=== PATIENT | female | born 1975 | race Two or more races ===

== ENCOUNTER 2024-05-28 08:05 | Outpatient (AMB) | payer OTHER, SELFPAY ==
[2024-05-28 08:15] VITALS: BP 120/62; PULSE 88; O2SAT 99; BMI 23.2
--- NOTE | 2024-05-28 08:15 | MHC.OFFVIS ---
Vital Signs 05/28/24 08:15 Height 5 ft 3 in Weight 130 lb 15.273 oz BMI 23.2 BP 120/62 Blood Pressure Location Lt brachial Position Sitting Pulse 88 Pulse Source Pulse Oximeter Pulse Oximetry (%) 99 Oxygen Delivery Method Room Air Intake Visit Reasons: Arthritis Intake Note: Patient present for follow up arthritis, she states shoulders and hands are hurting her today. Allergies lisinopril Adverse Reaction (Mild, Verified 05/28/24 08:18) Cough HPI HPI Arthritis: Details: She is having sharp shooting pain at the wrist with numbness in her hands. History of bilateral carpal tunnel release. Left shoulder pain has gotten worse. She is having difficulty when she brings her arms down. She also has pain at night when sleeping and has to sleep on her right side which is causing pain in her right shoulder. Intermittent knee pain relief with Tylenol Arthritis as needed. She is having pain in her right 2nd PIP causing difficulty in functioning such as when she was using knife. [facility] Medical History (Updated 05/28/24 @ 08:51 by Sammy De La Rosa MD) Carpal tunnel syndrome Arthritis Hypertension Surgical History (Updated 05/28/24 @ 08:[address] [facility]) History of carpal tunnel surgery Review of Systems Const All systems reviewed & are unremarkable except as noted in HPI and below Physical Exam Vital Signs: Last Vital Signs Pulse 88 05/28/24 08:15 BP 120/62 05/28/24 08:15 Pulse Ox 99 05/28/24 08:15 Oxygen Delivery Method Room Air 05/28/24 08:15 BMI result Body Mass Index 23.2 Const Other: General: Comfortable Skin: No lesions seen MSK: Tender to palpate right 2nd PIP. No synovitis noted. Tenderness subacromial region left side with positive painful arc and Mayfield Neal test. Office Procedures AMB Joint Injection/Aspiration Joint Injection/Aspiration Details: Left subacromial region Prep: site was prepped using aseptic technique Injected: 40 mg of, Kenalog, with 1 mL of and 1% plain lidocaine Procedure: The patient tolerated the procedure well Coding 68307 - Large joint Procedure code (CPT) selection complete Office Meds Kenalog 40 mg/mL suspension for injection Performing Provider: Sammy De La Rosa MD Performing Location: [facility] Rheumatology-[facility] Administered by: Sammy De La Rosa MD on 05/28/24 08:46 Dose Route Admin Location Dispensed Lot Number Expiration Date [facility] Welding Engineer 40 mg intrabursal 1 mL AP 2 [id number] [employer] lidocaine (PF) 10 mg/mL (1 %) injection solution Performing Provider: Sammy De La Rosa MD Performing Location: [facility] Administered by: Sammy De La Rosa MD on 05/28/24 08:46 Dose Route Admin Location Dispensed Lot Number Expiration Date [facility] Welding Engineer 10 mg Infiltration 2 mL [id number] [facility] Assessment & Plan Assessment & Plan (1) Subacromial impingement of left shoulder: Comment: We discussed treatment. She agreed to cortisone injection as she has had benefit with it in the past. Code(s): M75.42 - Impingement syndrome of left shoulder Category: Medical Plan: She received left subacromial cortisone injection this visit [facility]ing [facility] Return to clinic in 3 months (2) Knee pain: Comment: Intermittent. Unremarkable exam. Pain is controlled with Tylenol Arthritis 650 mg when needed. Code(s): M25.569 - Pain in unspecified knee Category: Medical Qualifiers: Chronicity: chronic Laterality: bilateral Qualified Code(s): M25.561 - Pain in right knee; M25.562 - Pain in left knee; G89.29 - Other chronic pain Plan: Continue to use Tylenol 650 mg are p.r.n. Requesting [facility] including x-rays If pain worsens, she will call office for PT order Return to clinic in 3 months (3) Hand pain: Comment: Right 2nd PIP tender on exam. She has recurrence of numbness in her left hand with sharp shooting wrist pain likely attributed to fill carpal tunnel release Code(s): M79.643 - Pain in unspecified hand Category: Medical Qualifiers: Laterality: right Qualified Code(s): M79.641 - Pain in right hand Plan: Requesting [facility] including x-rays Continue to use Tylenol as needed for pain control I recommend that she use diclofenac gel 1% applied to affected area every 4-6 hours as needed I am asking her to call her hand surgeon to address recurrence of hand numbness and sharp pain in wrists Return to clinic in 3 months Orders: Orders AMB Joint Injection/Aspiration Today M25.872 - Other specified joint disorders, left ankle and foot Medications: New diclofenac sodium 1% apply to finger or knee ever 4-6 hours as needed for joint pain 2 grams topical QID 100 grams 5RF Coding Level of Care Code Est Pt Level 4 (08607) Complex EM visit Add On G2211 Diagnoses Subacromial impingement of left shoulder M75.42 Chronic pain of both knees M25.561; M25.562; G89.29 Chronicity: chronic Laterality: bilateral Pain of right hand M79.641 Laterality: right CPT Codes Coding - 45307 Large joint: 42080 - Large joint ([id number])
== END 2024-05-28 08:45 | disposition home or self-care (01) ==
PROVIDERS: Visit Provider Internal Medicine Rheumatology
DX: M75.42 Impingement syndrome of left shoulder (principal); M25.561 Pain in right knee; M25.562 Pain in left knee; G89.29 Other chronic pain; M79.641 Pain in right hand; M25.872 Other specified joint disorders, left ankle and foot
CPT/HCPCS: 20610; 99213; G2211

== ENCOUNTER → 2024-05-28 08:05 | Outpatient (BNVA) | payer OTHER, SELFPAY | PROVIDERS: Visit Provider Internal Medicine Rheumatology | DX: M75.42 Impingement syndrome of left shoulder (principal); M25.561 Pain in right knee; M25.562 Pain in left knee; G89.29 Other chronic pain; M79.641 Pain in right hand | CPT/HCPCS: 20610; 99212; J2003; J3300 ==

== ENCOUNTER 2024-08-26 08:33 | Outpatient (REF) | payer OTHER, SELFPAY ==
--- NOTE | ~2024-08-26 | XR_ITS ---
EXAMINATION: XR WRIST 3 OR MORE VIEWS LEFT HISTORY: M25.539 - Pain in unspecified wrist COMPARISON: There are no prior studies available for comparison. FINDINGS: Four views of the left wrist are submitted. Osseous mineralization is normal. There is no fracture or dislocation. The joint spaces are preserved. There is chondrocalcinosis. XR/XR wrist LT min 3V IMPRESSION: Chondrocalcinosis. Otherwise unremarkable examination of the left wrist. Electronically signed by: Vern Mae MD 08/26/2024 11:41 AM EDT
--- OUTSIDE RECORDS SUMMARY | 2024-08-26 10:38 | XMS_ITS | Clinical Summary ---
Author Organization [facility] Address [address] [place] [address] Phone Care Team Providers Care Gastroenterology Technician Name Role Phone Hector Otto MD Primary Care Provider [phone] Allergies Active Allergy Reactions Criticality Noted Date [...] Office Visit [facility] [address] [place] [phone] Kulwinder Avila MD [address] [phone] Health Maintenance Due Date Last Done Comments Pneumococcal Vaccine: Pediat rics (0 to 5 Years) and At-Risk Patients (6 to 64 Years) (1 of 2 - PCV) 1982 Hepatitis B Vaccine (1 of 3 - 19+ 3-dose series) 1995 09/08/2007, 04/07/2007, 03/07/2007 Influenza Vaccine Completed 04/01/2024, , 03/23/2022, Additional history exists Insurance [employer] Care Teams Gastroenterology Technician Relationship Specialty Start Date End Date Hector Otto MD [address] [place] [id number] PCP - General Internal Medicine 02/02/21
--- OUTSIDE RECORDS SUMMARY | 2024-08-26 10:38 | XMS_ITS | Clinical Summary ---
Author Organization [facility] Address [address] [place] [address] Care Team Providers Care Seater Assembler Name Role Phone Unavailable Primary Care Provider [...]
[2024-08-26 13:50] LABS: MANUAL DIFF FLAG NO
[2024-08-26 13:57] LABS: Basophils Percent Auto 0.9 % (0-2); Eosinophils Absolute Auto 0.1 X10*3/uL (0.0-0.4); Eosinophils Percent Auto 2.3 % (0-4); Hematocrit 41.1 % (37.0-47.0); Hemoglobin 13.5 g/dl (12.0-16.0); Lymphocytes Absolute Auto 1.9 X10*3/uL (1.2-4.9); Lymphocytes Percent Auto 42.8 % (20-40); Mean Corpuscular HGB Conc 32.8 g/dl (31.0-35.0); Mean Corpuscular Hemoglobin 29.4 pg (27.0-33.0); Mean Corpuscular Volume 89.5 fL (80.0-98.0); Mean Platelet Volume 12.1 fL (9.4-12.3); Monocytes Absolute Auto 0.3 X10*3/uL (0.1-1.2); Monocytes Percent Auto 6.9 % (2-11); Neutrophils Percent Auto 47.1 % (45-73); Platelet Count 194 X10*3/uL (160-400); Red Blood Count 4.59 X10*6/uL (4.20-5.50); Red Cell Distribution Width 12.3 % (11.0-16.0); White Blood Count 4.3 X10*3/uL (4.8-10.8)
[2024-08-26 14:05] LABS: Alanine Aminotransferase 73 U/L (0-31); Aspartate Amino Transferase 59 U/L (5-31); Estimated Glomerular Filt Rate > 60
== END 2024-08-26 08:34 | disposition home or self-care (01) ==
LOC: HO.HMGCX 08:33
PROVIDERS: Visit Provider Internal Medicine Rheumatology
DX: M25.232 Flail joint, left wrist (principal); R53.1 Weakness; R29.898 Other symptoms and signs involving the musculoskeletal system; G56.03 Carpal tunnel syndrome, bilateral upper limbs; M75.42 Impingement syndrome of left shoulder; M25.562 Pain in left knee; G89.29 Other chronic pain; Z79.60 Long term (current) use of unspecified immunomodulators and immunosuppressants
CPT/HCPCS: 36415; 73110; 82565; 84450; 84460; 85025; 99212

== ENCOUNTER 2024-08-26 08:33 | Outpatient (AMB) | payer OTHER, SELFPAY ==
--- NOTE | 2024-08-26 08:35 | MHC.OFFVIS ---
Vital Signs 08/26/24 08:37 Weight 129 lb 3.054 oz BP 120/72 Blood Pressure Location Lt brachial Position Sitting Pulse 78 Pulse Source Pulse Oximeter Pulse Oximetry (%) 98 Oxygen Delivery Method Room Air Intake Visit Reasons: 3 mo follow up Intake Note: Patient present for follow up arthritis Accompanied by: Self / Same As Patient Allergies lisinopril Adverse Reaction (Mild, Verified 08/26/24 08:38) Cough HPI HPI 3 mo follow up: Details: She has been having consistent left wrist pain. Hands are weak. Things are more difficult to hold. She is not lifting at work anymore. Right 2nd and 3rd fingertip is numb. Symptoms are worse during the day. She feels fine in the morning when she wakes up. 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 She has been taking Tylenol Arthritis 2 tablets in the evening PRN pain. In the last 2 weeks she has been having left foot pain. No joint swelling. Cortisone to left shoulder resolved pain. She also used diclofenac gel on her shoulder and knee PRN pain. [facility] Medical History Carpal tunnel syndrome Arthritis Hypertension Surgical History History of carpal tunnel surgery Review of Systems Const All systems reviewed & are unremarkable except as noted in HPI and below Physical Exam Vital Signs: Last Vital Signs Pulse 78 08/26/24 08:37 BP 120/72 08/26/24 08:37 Pulse Ox 98 08/26/24 08:37 Oxygen Delivery Method Room Air 08/26/24 08:37 Const Other: General: Comfortable Skin: No lesions seen MSK: Tender to palpate right left wrists with warm. No swelling of joints. Tender left MTPs. Normal range of motion of upper extremity and lower extremity. Assessment & Plan Assessment & Plan (1) Generalized weakness: Code(s): R53.1 - Weakness Category: Medical Plan: She agreed to physical therapy to improve upper extremity and lower extremity strength. PT ordered (2) Hand weakness: Code(s): R29.898 - Other symptoms and signs involving the musculoskeletal system Category: Medical Plan: OT ordered to improve hand strength (3) Bilateral carpal tunnel syndrome: Comment: Status post carpal tunnel release. She is having symptoms related to carpal tunnel syndrome from failed surgery. Code(s): G56.03 - Carpal tunnel syndrome, bilateral upper limbs Category: Medical Plan: Wear wrist brace at night Contact hand surgeon to discuss recurrence of symptoms (4) Subacromial impingement of left shoulder: Comment: Resolved with cortisone injection from last visit Code(s): M75.42 - Impingement syndrome of left shoulder Category: Medical Plan: Monitor clinic (5) Knee pain: Comment: Intermittent. Unremarkable exam. Pain is controlled with Tylenol Arthritis 650 mg 1-2 tablets q.h.s. when needed. Code(s): M25.569 - Pain in unspecified knee Category: Medical Qualifiers: Chronicity: chronic Laterality: bilateral Qualified Code(s): M25.561 - Pain in right knee; M25.562 - Pain in left knee; G89.29 - Other chronic pain Plan: Continue to use Tylenol 650 mg 1-2 tablets q.h.s./p.r.n. I have ordered labs for drug monitoring PT ordered to improve lower extremity strength Return to clinic in 3 months (6) Chronic wrist pain: Comment: X-ray from 2021 reviewed. She has chondrocalcinosis noted. At this time she does not have synovitis to suggest CPPD flare. We discussed conservative management. Code(s): M25.539 - Pain in unspecified wrist; G89.29 - Other chronic pain Category: Medical Plan: OT ordered to improve hand strength X-ray left wrists ordered Baseline labs ordered Return to clinic in 3 months Orders: Orders OT Evaluation and Treatment Today G56.03 - Carpal tunnel syndrome, bilateral upper limbs, R29.898 - Other symptoms and signs involving the musculoskeletal system PT Evaluation and Treatment Today R53.1 - Weakness Aspartate Amino Transferase Today Z79.60 - terminal make up operator (current) use of unspecified immunomodulators and immunosuppressants Alanine Aminotransferase Today Z79.60 - FDC (current) use of unspecified immunomodulators and immunosuppressants Creatinine Today Z79.60 - terminal make up operator (current) use of unspecified immunomodulators and immunosuppressants Complete Blood Count Auto Diff Today Z79.60 - terminal make up operator (current) use of unspecified immunomodulators and immunosuppressants XR wrist LT min 3V Today G89.29 - Other chronic pain, M25.539 - Pain in unspecified wrist Coding Level of Care Code Est Pt Level 4 (20458) Complex EM visit Add On G2211 Diagnoses Generalized weakness R53.1 Hand weakness R29.898 Bilateral carpal tunnel syndrome G56.03 Subacromial impingement of left shoulder M75.42 Chronic pain of both knees M25.561; M25.562; G89.29 Chronicity: chronic Laterality: bilateral Chronic wrist pain M25.539; G89.29
[2024-08-26 08:37] VITALS: BP 120/72; PULSE 78; O2SAT 98
--- OUTSIDE RECORDS SUMMARY | 2024-08-26 09:21 | XMS_ITS | Clinical Summary ---
Author Organization [facility] ity Address [address] [place] [address] Care Team Providers Care Rehabilitation Counselor Name Role Phone Unavailable Primary Care Provider Unavailabl e Social History Tobacco Use Types Packs/Day Years Used Date Smoking Tobacco: Never Assessed Comments Unknown Sex and Gender Information Value Date Recorded Sex Assigned at Not on file Legal Sex Female 8:29 AM EST Gender Identity Not on file Sexual Orientation Not on file Plan of Treatment Health Maintenance Due Date Last Done Comments Breast Cancer Screening 1976 DTaP,Tdap,and Td Vaccines (1 - Tdap) 1995 Hepatitis B Vaccines (1 of 3 - 19+ 3-dose series) 1995 Cervical Cancer Screening: P ap Smear 1997 Colorectal Cancer Screening: Colonoscopy 05/13/2022 Depression Screening 05/13/2022 HIV Screening 05/13/2022 Hepatitis C Screening 05/13/2022 Social Influencers of Health Screening 05/13/2022 COVID-19 Vaccine (2023-2 5 season) 2024 Influenza Vaccine (#1) 2024 HIB Vaccines Aged Out No longer eligi ble based on patient's age to complete this topic HPV Vaccines Aged Out No longer eligi ble based on patient's age to complete this topic Hepatitis A Vaccines Aged Out No long er eligible based on patient's age to complete this topic IPV Vaccines Aged Out No longer eligi ble based on patient's age to complete this topic MMR Vaccines Aged Out No longer eligi ble based on patient's age to complete this topic Meningococcal ACWY Vaccine Aged Out N o longer eligible based on patient's age to complete this topic Meningococcal B Vacine Aged Out No lo nger eligible based on patient's age to complete this topic Pneumococcal Vaccine: Pediat rics (0 to 5 Years) and At-Risk Patients (6 to 64 Years) Aged Out No longer eligible b ased on patient's age to complete this topic RSV Immunization Patients Un mani 20 months Aged Out No longer eligible b ased on patient's age to complete this topic Varicella Vaccines Aged Out No longer eligible based on patient's age to complete this topic
--- OUTSIDE RECORDS SUMMARY | 2024-08-26 09:21 | XMS_ITS | Continuity of Care Document ---
Author Organization [facility] Address [address] [place] [address]- Care Team Providers Care Elastic Cutter Name Role Phone Fam MATIAS, Hector Sauer Primary Care Physician Encounter [facility] Date(s): 07/02/24 - 08/01/24 [facility] [address] [place], [place] [phone] Attending Physician: Shea Schwab Encounter Type: Triage Allergies, Adverse Reactions, Alerts Substance Criticality Severity Reaction Reaction Severity Status lisinopril cough Active Immunizations Given and Recorded Vaccine Date Status Refusal Reason influenza virus vaccine, inactivated 04/01/24 Give n influenza virus vaccine, inactivated 03/21/23 Give n influenza virus vaccine, inactivated 03/23/22 Give n influenza virus vaccine, inactivated 03/10/22 Johnie rded influenza virus vaccine, inactivated 04/12/21 Give n influenza virus vaccine, inactivated 03/08/20 Give n influenza virus vaccine, inactivated 02/24/19 Give n influenza virus vaccine, inactivated 04/10/18 Give n influenza virus vaccine, inactivated 03/29/15 Give n influenza virus vaccine, inactivated 04/09/14 Give n influenza virus vaccine, inactivated 03/03/13 Give n influenza virus vaccine, inactivated 1 02/19/12 Gi puneet influenza virus vaccine, inactivated 2 07/12/11 Gi puneet influenza virus vaccine, inactivated 3 07/26/10 Gi puneet influenza virus vaccine, inactivated 4 03/28/07 Gi puneet [id number] 12y+ bivalent booster vax 05/23/22 Given SARS-CoV-2 mRNA ([id number]) vax 07/28/21 Given SARS-CoV-2 (COVID-19) mRNA BNT-162b2 vac 5 12/23/20 Given SARS-CoV-2 (COVID-19) mRNA BNT-162b2 vac 12/02/20 Given tetanus-diphtheria toxoids (Td) 06/27/18 Given influ virus vac, H1N1, inactive(oldterm) 6 08/19/09 Given Influenza Inactive (IM) (oldterm) 7 02/28/09 Given Tet/Diphth/Acel, Pertussis (oldterm) 8 07/12/08 Gi puneet Hepatitis B Vaccine (old term) 9 09/08/07 Given Hepatitis B Vaccine (old term) 10 04/07/07 Given Hepatitis B Vaccine (old term) 11 03/07/07 Given 1Admin Note: VIS GIVEN VIS DATE 12/10/2011 2Admin Note: flulaval vis given vis date 01/02/2011 3Admin Note: vis given 01/17/10 4Admin Note: VIS GIVEN 5? Unknown: Resend to [facility]. 6Admin Note: vis given 03/11/09 7Admin Note: VIS GIVEN 01/18/09 8Admin Note: VIS GIVEN 9Admin Note: 3RD VACCINE 10Admin Note: 11Admin Note: 1st Medications aMILoride 5 mg oral tablet 1 tablet = 5 mg, By Mouth, Daily, # 90 tablet, 3 Refills, Maintenance, 07/02/24 9:53:00 AM EST, Tablet, [facility], Dose increased 04/01/23, 160, cm, 07/02/24 9:48:00 EST, Height, 59, kg, 09/11/23 13:30:00 EDT, Dry Weight Start Date: 07/02/24 Status: Ordered Quantity: 90.0 Unit: tablet Repeat number: 4 cetirizine 10 mg oral tablet 1 tablet = 10 mg, By Mouth, Daily, # 30 tablet, 5 Refills, Maintenance, 01/24/24 9:11:00 AM EDT, Tablet, [facility], Partial fill upon patient request if the prescription is for a schedule II opioid drug., 160, cm, 10/29/23 9:15:00 EDT, Height, 59, kg, 09/11/23 13:30:00 EDT, Dry Weight Start Date: 01/24/24 Status: Ordered Quantity: 30.0 Unit: tablet Repeat number: 6 cholecalciferol 1000 intl units oral capsule 1 capsule = 25 mcg, By Mouth, Daily, # 100 capsule, 0 Refills, Maintenance, 11/26/22 1:56:00 PM EDT,Capsule, Partial fill upon patient request if the prescription is for a schedule II opioid drug. Start Date: 11/26/22 Status: Ordered Quantity: 100.0 Unit: capsule Repeat number: 1 docusate sodium 100 mg oral capsule 1 capsule = 100 mg, By Mouth, 2 times a day, PRN as needed for constipation, # 60 capsule, 1 Refills, Maintenance, 04/01/24 9:14:00 AM EDT, Capsule, [facility], Partial fill upon patient request if the prescription is for a schedule II opioid drug., 160, cm, 04/01/24 8:23:00 EDT, Height, 59, kg, 09/11/23 13:30:00 EDT, Dry Weight Start Date: 04/01/24 Status: Ordered Quantity: 60.0 Unit: capsule Repeat number: 2 fluticasone 50 mcg/inh nasal spray See Instructions, INHALE 1 SPRAYS INTO THE NOSTRILS TWO TIMES A DAY FOR 21 DAYS, # 16 Gm, 5 Refills, 04/01/24 8:31:00 AM EDT, [facility], 21, INHALE 1 SPRAYS INTO THE NOSTRILS TWO TIMES A DAYFOR 21 DAYS, 160, cm, 04/01/24 8:23:00 EDT, Height, 59, kg, 09/11/23 13:30:00 EDT, Dry Weight Start Date: 04/01/24 Status: Ordered Quantity: 16.0 Unit: g Repeat number: 6 Home Blood Pressure Monitor See Instructions, # 1 each, Maintenance, Use to check BP daily for Hypertension, I10., 07/30/23 10:15:00 AM EST, Supply, 160.02, cm, 07/30/23 9:50:00 EST, Height, 55.8, kg, 10/15/22 13:28:00 EDT, Dry Weight Start Date: 07/30/23 Status: Ordered Quantity: 1.0 Unit: each Repeat number: 1 loperamide 2 mg oral tablet 1 tablet = 2 mg, By Mouth, Every 4 hours, PRN for loose stool, # 60 tablet, 0 Refills, Maintenance,07/02/24 10:13:00 AM EST, Tablet, [facility], Partial fill upon patient request if the prescription is for a schedule II opioid drug., 160, cm, 07/02/24 9:48:00 EST, Height, 59, kg, 09/11/23 13:30:00 EDT, Dry Weight Start Date: 07/02/24 Status: Ordered Quantity: 60.0 Unit: tablet Repeat number: 1 Magnesium Chloride = 64 mg, 2 times a day, 0 Refills, Maintenance, 11/26/22 1:54:00 PM EDT, Partial fill upon patient request if the prescription is for a schedule II opioid drug. Start Date: 11/26/22 Status: Ordered Repeat number: 1 MiraLax oral powder for reconstitution = 17 Gm, By Mouth, Daily, dissolve in 4 to 8 oz of beverage, # 510 Gm, 1 Refills, Acute 04/01/25 9:14:00 AM EDT, 04/01/24 9:14:00 AM EDT, REC Powder, [facility], Partial fill upon patient request if the prescription is for a schedule II opioid drug., 17 Gm By Mouth Daily,Instr:dissolve in 4to 8 oz of beverage, 160, cm, 04/01/24 8:23:00 EDT, Height, 59, kg, 09/11/23 13:30:00 EDT, Dry Weight Start Date: 04/01/24 Stop Date: 04/01/25 Status: Ordered Quantity: 510.0 Unit: g Repeat number: 2 naproxen 500 mg oral tablet 1 tablet = 500 mg, By Mouth, 2 times a day, # 60 tablet, 0 Refills, Acute 04/01/25 9:13:00 AM EDT, 04/01/24 9:12:00 AM EDT, Tablet, [facility], Partial fill upon patient request if the prescription is for a schedule II opioid drug., 160, cm, 04/01/24 8:23:00 EDT, Height, 59, kg, 09/11/23 13:30:00 EDT, Dry Weight Start Date: 04/01/24 Stop Date: 04/01/25 Status: Ordered Quantity: 60.0 Unit: tablet Repeat number: 1 Indication: Unspecified osteoarthritis, unspecified site omeprazole 20 mg oral enteric coated capsule 1 capsule = 20 mg, By Mouth, Daily, # 30 capsule, 3 Refills, Maintenance, 02/18/24 8:30:00 AM EDT, EC Capsule, [facility], Partial fill upon patient request if the prescription is for a schedule II opioid drug., 160, cm, 02/18/24 8:03:00 EDT, Height, 59, kg, 09/11/23 13:30:00 EDT, Dry Weight Start Date: 02/18/24 Stop Date: 06/17/24 Status: Ordered Quantity: 30.0 Unit: capsule Repeat number: 4 simethicone 80 mg oral tablet, chewable 80 mg, 1, tablet, Chew, 4 times a day, PRN, # 150 tablet, Refills 0, Tot. Refills 0, Maintenance, as needed for gas, 07/02/24 10:13:00 AM EST, Route to Pharmacy Electronically, [facility], Partial fill upon patient request if the prescription is for a schedule II opioid drug., 160, cm, 07/02/24 9:48:00 EST, Height, 59, kg, 09/11/23 13:30:00 EDT, Dry Weight Start Date: 07/02/24 Status: Ordered Quantity: 150.0 Unit: tablet Repeat number: 1 SUMAtriptan 25 mg oral tablet 1 tablet = 25 mg, By Mouth, Daily, PRN for migraine headache, may repeat dose after 2 hours up to amaximum of 2, # 9 tablet, 3 Refills, Maintenance, 04/01/23 10:02:00 AM EDT, Tablet, [facility], 160.02, cm, 04/01/23 9:44:00 EDT, Height, 55.8, kg, 10/15/22 13:28:00 EDT, Dry Weight Start Date: 04/01/23 Status: Ordered Quantity: 9.0 Unit: tablet Repeat number: 4 tiZANidine 4 mg oral tablet 4 mg, 1, tablet, By Mouth, Every 8 hours, prn muscle tightenss, spasm, may cause drowsiness, # 21 tablet, Refills 0, Tot. Refills 0, Maintenance, 09/12/23 3:28:00 PM EDT, [facility] Partial fill upon patient request if the prescription is for a schedule II opioid drug., 160, cm, 09/12/23 15:13:00 EDT, Height, 59, kg, 09/11/23 13:30:00 EDT, Dry Weigh t Start Date: 09/12/23 Stop Date: 09/19/23 Status: Ordered Quantity: 21.0 Unit: tablet Repeat number: 1 Problem List Condition Confirmation Course Effective Dates Status Health Status Informant Tendonitis, Achilles, right Confirmed Active Acquired renal cystic disease Confirmed 08/30/20 Active Anxiety Confirmed Active 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 07/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 Confirmed Active Carpal tunnel syndrome Confirmed Active Chalazion of lower eyelid of right eye Confirmed 03/02/19 Active Chronic kidney disease stage 2 Confirmed 08/30/20 Active Kidney cysts, bilateral 1 Confirmed Active Essential hypertension Confirmed 08/30/20 Active Family history of fatty liver - son, by biopsy Confirmed Active Gitelman syndrome Confirmed 08/30/20 Active Glaucoma 2 Confirmed Active Hyperparathyroidism due to renal insufficiency Confirmed 08/30/20 Active Hypokalemia Confirmed 08/31/20 Active 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 Avila 5S/p injection by Rheum with improvement Social History Social History Type Response Smoking Status Never smoker entered on: 09/01/13 Sex Female Sex Representation Female (finding) Patient Care team information Care Team Personnel Name: Lorena Degroot NP Position: S Outreach Member Role: Lifetime Consulting Physician Address: [address] [place] [address] Telecom: Name: Kulwinder Avila MD Position: [facility] Renal MD Member Role: Lifetime Consulting Physician Address: [address] [facility] [address] [facility] [place] [address]- Telecom: Name: Hector Otto MD Position: [facility] Physician - Primary Care Member Role: PCP Address: [address] [place] [address]- Telecom: Care Team Related Persons Name: SHANNA LOVE Name: PAL HERNÁNDEZ Insurance Providers Guarantor name: MEHULArash LOVE [facility] Plan Information #: 1 Payer: [facility] Member Number: NA Policy Number: NA Group Number: NA
--- OUTSIDE RECORDS SUMMARY | 2024-08-26 09:21 | XMS_ITS | Clinical Summary ---
Author Organization [facility] Address [address] [place] [address] Phone Care Team Providers Care Medical Lab Assistant Name Role Phone Hector Otto MD Primary Care Provider [phone] Allergies Active Allergy Reactions Criticality Noted Date Comments Lisinopril 09/20/2021 Other reaction(s): cough Medications SUMAtriptan (IMITREX) 25 MG tablet Take 25 mg by mouth 1 (one) time if needed Active fluticasone (FLONASE) 50 MCG/ACT nasal spray Administer 1 spray into each nostril 1 (one) time each day Active cetirizine (ZyrTEC) 10 MG tablet Take 10 mg by mouth 1 (one) time each day Active aMILoride (MIDAMOR) 5 MG tablet Take 1 tablet (5 mg total) by mouth every other day 45 tablet 3 3 Active Magnesium Chloride (MagDelay) 64 MG tablet delayed-release TAKE ONE TABLET BY MOUTH TWICE A DAY 180 tablet 3 4 Active D3 High Potency 25 MCG (1000 UT) capsule TAKE ONE CAPSULE BY MOUTH EVERY DAY 90 capsule 3 4 Active Active Problems Problem Noted Date Diagnosed Date Multiple renal cysts 09/20/2021 Autosomal dominant tubulointerstitial kidney dis ease 07/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 Hypokalemia 08/31/2020 Acquired renal cystic disease 08/30/2020 Chronic kidney disease stage 2 08/30/2020 Essential hypertension 08/30/2020 Gitelman syndrome 08/30/2020 Hyperparathyroidism due to renal insufficiency 0 08/30/2020 Hypomagnesemia 08/30/2020 Renal stone 08/30/2020 Resolved Problems Problem Noted Date Diagnosed Date Resolved Date Achilles tendinitis 09/20/2021 02/21/20 22 Anxiety 09/20/2021 02/20/2022 Carpal tunnel syndrome 09/20/202102/20 FH: Liver disease 09/20/2021 02/20/2022 Glaucoma 09/20/2021 02/20/2022 Overview (09/20/2021): Recently diagnosed, per report Ligation of fallopian tube 09/20/2021 0 02/20/2022 Migraine 09/20/2021 02/20/2022 Greater trochanteric pain syndrome 09/20/2021 02/20/2022 Overview (09/20/2021): S/p injection by Rheum with improvement Varicose veins of lower extremity 09/20/2021 02/20/2022 Cyst of kidney 09/20/2021 02/20/2022 Overview (09/20/2021): Followed by Dr. Kulwinder Avila Renal stone 09/20/2021 02/20/2022 Overview (09/20/2021): followed by Dr. 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 Immunizations Name Administration Dates Next Due Hep B, Unspecified 09/08/2007,04/07/2007, 007 Influenza TIV (IM) 03/17/2018,03/29/2015 Influenza Whole 02/28/2009 Influenza, Quadrivalent, With Preservative 04/10 Pfizer SARS-COV-2 12/23/2020,12/02/2020 Td, Unspecified 06/27/2018 Family History Medical History Relation Comments Diabetes Brother Cancer Father bone cancer 76 Diabetes Mother Hypertension Mother Diabetes Son Relation Status Comments Brother Father Mother Alive Son Social History Tobacco Use Types Packs/Day Years Used Date Smoking Tobacco: Never Smokeless Tobacco: Never Tobacco Cessation:Counseling Given: Not Answered Alcohol Use Standard Drinks/Week Comments No 0 (1 standard drink = 0.6 oz pur e alcohol) Comments Unknown Sex and Gender Information Value Date Recorded Sex Assigned at Not on file Legal Sex Female 5:06 PM EST Gender Identity Not on file Sexual Orientation Not on file Last Filed Vital Signs Vital Sign Reading Time Taken Comments Blood Pressure 147/82 11/20/2023 7:58 AM EDT Pulse 88 11/20/2023 7:58 AM EDT Temperature - - Respiratory Rate - - Oxygen Saturation 99% 11/26/2022 7:34 AM EDT Inhaled Oxygen Concentration - - Weight 60.8 kg (134 lb) 11/20/2023 7:49 AM EDT Height 160 cm (5' 3 ) 02/21/2022 9:28 AM EDT Body Mass Index 23.74 02/21/2022 9:28 AM EDT Plan of Treatment Upcoming Encounters Date Type Department Care Team (Late st Contact Info) Description 11/23/2024 8:00 AM EDT [facility] [address] [place] [phone] Kulwinder Avila MD [address] [phone] Health Maintenance Due Date Last Done Comments Pneumococcal Vaccine: Pediat rics (0 to 5 Years) and At-Risk Patients (6 to 64 Years) (1 of 2 - PCV) 1982 Hepatitis B Vaccine (1 of 3 - 19+ 3-dose series) 1995 09/08/2007, 04/07/2007, 03/07/2007 Influenza Vaccine Completed 04/01/2024, , 03/23/2022, Additional history exists Insurance [employer] Care Teams Medical Lab Assistant Relationship Specialty Start Date End Date Hector Otto MD [address] [place] [id number] PCP - General Internal Medicine 02/02/21
== END 2024-08-26 09:09 | disposition home or self-care (01) ==
LOC: HO.RHES 08:34
PROVIDERS: Visit Provider Internal Medicine Rheumatology
DX: R53.1 Weakness (principal); R29.898 Other symptoms and signs involving the musculoskeletal system; G56.03 Carpal tunnel syndrome, bilateral upper limbs; M75.42 Impingement syndrome of left shoulder; M25.561 Pain in right knee; M25.562 Pain in left knee; G89.29 Other chronic pain; M25.539 Pain in unspecified wrist
CPT/HCPCS: 99214; G2211

== ENCOUNTER → 2024-08-26 09:43 | Outpatient (BNV) | payer OTHER, SELFPAY | PROVIDERS: Visit Provider Radiology Diagnostic Radiology | DX: M25.532 Pain in left wrist (principal) | CPT/HCPCS: 73110 ==

== ENCOUNTER 2024-09-10 08:05 | Outpatient (AMB) | payer OTHER, SELFPAY ==
--- NOTE | 2024-09-10 08:06 | A.OFFVIS_ITS ---
Vital Signs 09/10/24 08:14 Height 5 ft 3 in Weight 129 lb 3.054 oz BMI 22.9 BP 122/80 Blood Pressure Location Lt brachial Position Sitting Pulse 95 Pulse Source Pulse Oximeter Pulse Oximetry (%) 99 Oxygen Delivery Method Room Air Intake Visit Reasons: back pain Intake Note: Patient present for follow up arthritis and back pain. Accompanied by: Self / Same As Patient Allergies lisinopril Adverse Reaction (Mild, Verified 09/10/24 08:36) Cough HPI HPI back pain: Details: Last week she started experiencing mid back to lower back pain with radiation down right leg. She was functional. Over the weekend the pain increased in intensity where she had difficulty standing. Yesterday she went to the ER and was given Decadron and Toradol. She was given a diagnosis of sciatica and prescribed cyclobenzaprine and naproxen. She had a liver ultrasound ordered by PCP in February 2024, which patient revealed fatty liver. [facility] Medical History Carpal tunnel syndrome Arthritis Hypertension Surgical History History of carpal tunnel surgery Review of Systems Const All systems reviewed & are unremarkable except as noted in HPI and below Physical Exam Vital Signs: Last Vital Signs Pulse 95 09/10/24 08:14 BP 122/80 09/10/24 08:14 Pulse Ox 99 09/10/24 08:14 Oxygen Delivery Method Room Air 09/10/24 08:14 BMI result Body Mass Index 22.9 Const Other: General: Comfortable Skin: No lesions seen MSK: No tenderness of spinous process of thoracic or lumbar spine. Good lumbar flexion. Negative straight leg raising test. Assessment & Plan Assessment & Plan (1) Lumbar back pain with radiculopathy affecting right lower extremity: Comment: Concern for nerve impingement from lumbar spine contributing to patient's symptom. She has had improve pain since ER visit where she received Decadron and Toradol. Code(s): M54.16 - Radiculopathy, lumbar region Category: Medical Plan: She will take Flexeril at night She will take naproxen 500 mg twice a day until pain resolves L-spine x-ray ordered Return to clinic in 3 months (2) Hepatic steatosis: Comment: Contributing to transaminitis Code(s): K76.0 - Fatty (change of) liver, not elsewhere classified Category: Medical Plan: She will repeat liver function tests September 28 We discussed importance of healthy eating and exercise Orders: Orders XR lumbar spine 2-3V Today M54.16 - Radiculopathy, lumbar region Coding Level of Care Code Est Pt Level 3 (47253) Complex EM visit Add On G2211 Diagnoses Lumbar back pain with radiculopathy affecting right lower extremity M54.16 Hepatic steatosis K76.0
--- OUTSIDE RECORDS SUMMARY | 2024-09-10 08:13 | XMS_ITS | Encounter Summary ---
Author Organization [facility] Address [address] [place] [address] Care Team Providers Care Motion Study Analyst Name Role Phone Physician, No Pcp Primary Care Provider Unavaila ble Reason for Visit * Reason Comments Back Pain Right sided back oksana n that wraps around to the front and down right leg started on Saturday. Encounter Details Date Type Department Care Team (Late st Contact Info) Description 09/09/2024 6:12 AM EDT - 09/09/2024 8:02 AM EDT Emergency [facility] Emergency [address] [place] [address] Sciatica of right side (Primary Dx) Discharge Disposition: Home or Self Care Social History Tobacco Use Types Packs/Day Years Used Date Smoking Tobacco: Never Smokeless Tobacco: Never Tobacco Cessation:Counseling Given: Not Answered Alcohol Use Standard Drinks/Week Comments Never 0 (1 standard drink = 0.6 oz pur e alcohol) Comments Unknown Sex and Gender Information Value Date Recorded Sex Assigned at Female 09/09/2024 7:42 AM EDT Legal Sex Female 8:29 AM EST Gender Identity Female 09/09/2024 7:42 AM EDT Sexual Orientation Straight 09/09/2024 7: 42 AM EDT documented as of this encounter Last Filed Vital Signs Vital Sign Reading Time Taken Comments Blood Pressure 142/95 09/09/2024 4:59 AM EDT Pulse 99 09/09/2024 4:59 AM EDT Temperature 36.5 ??C (97.7 ??F) 09/09/2024 4:59 AM ED T Respiratory Rate 18 09/09/2024 4:59 AM EDT Oxygen Saturation 99% 09/09/2024 4:59 AM EDT Inhaled Oxygen Concentration - - Weight 58.5 kg (128 lb 15.7 oz) 09/09/2024 4:59 AM EDT Height 160 cm (5' 3 ) 09/09/2024 4:59 AM EDT Body Mass Index 22.85 09/09/2024 4:59 AM EDT documented in this encounter Discharge Instructions * Discharge Instructions* MICHAEL Swann - 09/09/2024 7:51 AM EDT You have been seen today for back pain I suspect you likely have sciatica please take Flexeril and naproxen as prescribed. Flexeril can make you tired or sleepy do not mix with any other sedating substances such as alcohol marijuana or any other medications. Follow-up with your primary care provider * Attachments The following attachments cannot be sent through Care Everywhere. * Sciatica ([place]) documented in this encounter Medications at Time of Discharge cyclobenzaprine (FLEXERIL) 10 mg tablet Take 1 tablet (10 mg total) by mouth 2 (two) times a day if needed for muscle spasms for up to 10 days. 20 tablet 09/09/2024 09/19/2024 naproxen (NAPROSYN) 500 mg tablet Take 1 tablet (500 mg total) by mouth 2 (two) times a day with meals for 15 days. 30 tablet 09/09/2024 09/24/2024 documented as of this encounter Ordered Prescriptions Prescription Sig Dispense Quantity Refills Last Filled Start Date End Date naproxen (NAPROSYN) 500 mg tablet Take 1 tablet (500 mg total) by mouth 2 (two) times a day with meals for 15 days. 30 tablet 09/09/2024 09/24/2024 cyclobenzaprine (FLEXERIL) 10 mg tablet Take 1 tablet (10 mg total) by mouth 2 (two) times a day if needed for muscle spasms for up to 10 days. 20 tablet 09/09/2024 09/19/2024 documented in this encounter Discharge Disposition Disposition Code Departure Means Destination Comment s Home or Self Care D/c instructions reviewed with and understood by pt. Pt understands to take the medications as prescribed to her, to eat something prior to taking the naproxen, to not take other NSAIDs while taking the naproxen, and to not drink or drive after taking the muscle relaxer. She understands to get some rest over the next few days and to f/u with her primary, but understands she can return to the ER at any time if needed. Provided with work note by MICHAEL stewart. documented in this encounter Progress Notes * MICHAEL Swann - 09/09/2024 7:46 AM EDT I received this patient in signout this 49-year-old female who came in today for chief complaint ofback pain with radiation down her buttocks symptoms were most indicative of sciatica she received meds here in the emergency department at 746 was reporting to nursing staff she was feeling substantially better. Upon my assessment patient is requesting to go home because she is feeling better. For p rescription for naproxen, Flexeril Cosigned by Abel Del Valle MD at 09/09/2024 11:23 AM EDT * Eileen Lozano RN - 09/09/2024 5:06 AM EDT Patient presents to triage with slow, steady gait. Endorses mid lower back pain radiating to right buttock and around right hip down right leg since 09/06. Patient has PCP appt. 09/10 for assessment/plan of care. I went to the bathroom this morning and my partner had to help me up. documented in this encounter Plan of Treatment Not on file documented as of this encounter Visit Diagnoses Diagnosis Sciatica of right side- Primary documented in this encounter Administered Medications Inactive Administered Medications - up to 3 most recent administrations Medication Order MAR Action Action Date Dose Rate Site dexAMETHasone (DECADRON) injection 10 mg 10 mg, intramuscular, Once, On Sat09/09/24 at 0636, For 1 dose Given 09/09/2024 6:48 AM EDT 10 mg Left Deltoid ketorolac (TORADOL) injection 30 mg 30 mg, intramuscular, Once, On Sat09/09/24 at 0636, For 1 dose Given 09/09/2024 6:48 AM EDT 30 mg Right Deltoid documented in this encounter Active and Recently Administered Medications Times are shown in EDT. Scheduled Medication Order 09/07/2024 09/08/2024 09/09/2024 dexAMETHasone (DECADRON) injection 10 mg (COMPLETED) 10 mg, intramuscular, Once, On Sat09/09/24 at 0636, For 1 dose 0648 (Given - Provid er: Alejo Heard RN) ketorolac (TORADOL) injection 30 mg (COMPLETED) 30 mg, intramuscular, Once, On Sat09/09/24 at 0636, For 1 dose 0648 (Given - Provid er: Alejo Heard RN) documented in this encounter Care Teams Motion Study Analyst Relationship Specialty Start Date End Date Physician, No Pcp PCP - General 09/09/24 documented as of this encounter
--- OUTSIDE RECORDS SUMMARY | 2024-09-10 08:13 | XMS_ITS | Continuity of Care Document ---
Author Organization [facility] Address [address] [place] [address]- Care Team Providers Care Site Acquisition Specialist Name Role Phone Fam MATIAS, Hector Sauer Primary Care Physician [phone] [place] [facility] [place]): [place]10[place] - 09/09/24 [facility] [address] [place] [address]- Encounter Type: Triage Allergies, Adverse Reactions, Alerts [...] virus vaccine, inactivated 4 03/28/07 Gi puneet [id number] 12y+ bivalent booster vax 05/23/22 Given SARS-CoV-2 mRNA ([id number]) vax 07/28/21 Given SARS-CoV-2 (COVID-19) mRNA BNT-162b2 [...] Refills, Maintenance, 07/02/24 9:53:00 AM EST, Tablet, [facility], Dose increased 04/01/23, 160, cm, 07/02/24 9:48:00 EST, Height, 59, kg, 09/11/23 13:30:00 EDT, Dry Weight Start Date: 07/02/24 Status: Ordered Quantity: 90.0 Unit: tablet Repeat number: 4 cetirizine 10 mg oral tablet 1 tablet, By Mouth, Daily, # 30 tablet, 5 Refills, Maintenance, 08/10/24 8:08:00 AM EST, [facility], 160, cm, 07/02/24 9:48:00 EST, Height, 59, kg, 09/11/23 13:30:00 EDT, Dry Weight Start Date: 08/10/24 Status: Ordered Quantity: 30.0 Unit: tablet Repeat number: 1 cholecalciferol 1000 intl units oral capsule 1 [...] Refills, Maintenance, 04/01/24 9:14:00 AM EDT, Capsule, [facility], Partial fill upon patient [...] Gm, 5 Refills, 04/01/24 8:31:00 AM EDT, [facility], 21, INHALE 1 SPRAYS [...] EDT, 04/01/24 9:14:00 AM EDT, REC Powder, [facility], Partial fill upon [...] Maintenance, 02/18/24 8:30:00 AM EDT, EC Capsule, [facility], Partial fill upon patient [...] 10:13:00 AM EST, Route to Pharmacy Electronically, [facility], Partial fill upon patient [...] Refills, Maintenance, 04/01/23 10:02:00 AM EDT, Tablet, [facility], 160.02, cm, 04/01/23 9:44:00 [...] 3:28:00 PM EDT, Route to Pharmacy Electronically, [facility] Partial fill upon patient request if the [...] Team Personnel Name: Lorena Degroot NP Position: [facility] Outreach Member Role: Lifetime Consulting Physician Address: [address] [place] [address]- Telecom: Name: Kulwinder Avila MD Position: [facility] Renal MD Member Role: Lifetime Consulting Physician Address: [address] [place] [address] [address] [facility] [place] [address]- [place] Telecom: Name: Fam MATIAS, Hector Sauer Position: S Physician - Primary Care Member Role: PCP Address: [address] [place] [phone]- Telecom: Care Team Related Persons Name: SHANNA LOVE Name: PAL HERNÁNDEZ Insurance Providers Guarantor name: [employer] Plan Information #: 1 Payer: [facility] Member Number: NA Policy Number: NA Group Number: NA
--- OUTSIDE RECORDS SUMMARY | 2024-09-10 08:13 | XMS_ITS | Clinical Summary ---
Author Organization [facility] Address [address] [place] [address] Phone Care Team Providers Care Cell Attendant Name Role Phone Hector Otto MD Primary Care Provider [phone] Allergies Active Allergy Reactions Criticality Noted Date [...] Office Visit [facility] [address] [place] [phone] Kulwinder Avila MD [address] [phone] Health Maintenance Due Date Last Done Comments Pneumococcal Vaccine: Pediat rics (0 to 5 Years) and At-Risk Patients (6 to 64 Years) (1 of 2 - PCV) 1982 Hepatitis B Vaccine (1 of 3 - 19+ 3-dose series) 1995 09/08/2007, 04/07/2007, 03/07/2007 Influenza Vaccine Completed 04/01/2024, , 03/23/2022, Additional history exists Insurance [employer] Care Teams Cell Attendant Relationship Specialty Start Date End Date Hector Otto MD [address] [place] [id number] PCP - General Internal Medicine 02/02/21
--- OUTSIDE RECORDS SUMMARY | 2024-09-10 08:13 | XMS_ITS | Clinical Summary ---
Author Organization [facility] Address [address] [place] [address] Phone Care Team Providers Care Jailor Name Role Phone Physician, No Pcp Primary Care Provider Unavaila ble Allergies Active Allergy Reactions Criticality Noted Date Comments Lisinopril Cough 09/09/2024 Medications cyclobenzaprine (FLEXERIL) 10 mg tablet Take 1 tablet (10 mg total) by mouth 2 (two) times a day if needed for muscle spasms for up to 10 days. 20 tablet 09/09/2024 5 Active naproxen (NAPROSYN) 500 mg tablet Take 1 tablet (500 mg total) by mouth 2 (two) times a day with meals for 15 days. 30 tablet 09/09/2024 5 Active Encounters Date Type Department Care Team Description 09/09/2024 6:12 AM EDT - 09/09/2024 8:[address] [facility] Emergency [address] [place] [address] Sciatica of right side (Primary Dx) Discharge Disposition: Home or Self Care from Last 3 Months Surgical History Surgery Date Site/Laterality Comments CARPAL TUNNEL RELEASE Bilateral Medical History Medical History Date Comments Hypertension Arthritis Acute migraine Low magnesium level Fatty liver Social History Tobacco Use Types Packs/Day Years [...] Orientation Straight 09/09/2024 7: 42 AM EDT Obstetrics History Last Filed Vital Signs Vital Sign Reading [...] Mass Index 22.85 09/09/2024 4:59 AM EDT Plan of Treatment Health Maintenance Due Date Last Done Comments Breast Cancer Screening 1976 Cervical Cancer Screening: Pap Smear 1997 Cholesterol Screening (Lipid Panel) 05/13/2022 Colorectal Cancer Screening: Colonoscopy 05/13/2022 Depression Screening 05/13/2022 HIV Screening 05/13/2022 Hepatitis C Screening 05/13/2022 Social Influencers of Health Screening 05/13/2022 COVID-19 Vaccine ( season) 2024 04/05/2023, 05/23/2022, 07/28/2021, Additional history exists Hypertension/CHF/CAD Annual BMP Blood Test 11/12/2024 11/13/2023 DTaP,Tdap,and Td Vaccines (2 - Td or Tdap) 06/27/2028 06/27/2018 Hepatitis B Vaccines Completed 09/08/2007, 04/07/2007, 03/07/2007 Influenza Vaccine Completed 04/01/2024, , 03/23/2022, Additional history exists HIB Vaccines Aged Out No longer eligi [...] age to complete this topic Pneumococcal Vaccine: Pediatrics (0 to 5 Years) and At-Risk Patients (6 to 64 Years) Aged Out No longer eligible based on patient's age to complete this topic RSV Immunization Patients Under 20 months Aged Out No longer eligible based on patient's age to complete this topic Varicella Vaccines Aged Out No longer eligible based on patient's age to complete this topic Insurance [employer] MEDICA[employer]VANTAGE [address] [place] [address] Care Teams Jailor Relationship Specialty Start Date End Date Physician, No Pcp PCP - General 09/09/24
[2024-09-10 08:14] VITALS: BP 122/80; PULSE 95; O2SAT 99; BMI 22.9
== END 2024-09-10 09:44 | disposition home or self-care (01) ==
LOC: HO.RHES 08:05
PROVIDERS: Visit Provider Internal Medicine Rheumatology
DX: M54.16 Radiculopathy, lumbar region (principal); K76.0 Fatty (change of) liver, not elsewhere classified
CPT/HCPCS: 99213; G2211

== ENCOUNTER → 2024-09-10 08:05 | Outpatient (BNVA) | payer OTHER, SELFPAY | PROVIDERS: Visit Provider Internal Medicine Rheumatology | DX: M54.16 Radiculopathy, lumbar region (principal); K76.0 Fatty (change of) liver, not elsewhere classified | CPT/HCPCS: 99212 ==

== ENCOUNTER 2024-09-24 07:58 | Outpatient (RCR) | payer OTHER, SELFPAY ==
--- NOTE | 2024-09-01 08:51 | MHC.OT.EP ---
[address] [phone] Occupational Therapy Plan of Care Patient Name: Rebecca Ann Date of Evaluation: 09/01/24 Diagnosis: Bilateral carpal tunnel syndrome Pain Location: Left wrist Current: 0/10 at rest Worst: 7/10 with activity Right index finger (numbness) Current: 7/10 Aggravating Factors: Forceful grasp, opening bottles Alleviating Factors: Wearing wrist support at night, pain medication Assessment: Rebecca is a 49-year-old female with a history of carpal tunnel release on the L, currently experiencing persistent left wrist pain and numbness in the right second digit. 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 Her symptoms worsen throughout the day, with increased pain and fatigue in both wrists, limiting her ability to perform activities of daily living (ADLs) such as opening jars and cutting vegetables. Positive Tinel?s and Phalen?s tests on the left suggest ongoing median nerve involvement. Wrist range of motion is WNLs, but facs teacher strength is mildly reduced bilaterally (R: 40#, L: 35#). Her QuickDASH score of 54.5% indicates significant functional impairment. Pt reports she used to wear a wrist brace at night, although has not worn them in years. Pt. would benefit from skilled OT services to address noted barriers and regain max functional potential. Frequency and Duration: The patient will be seen 2x/wk for 4 weeks Short Term Goals: Decrease left wrist pain <5/10 Improve bilateral facs teacher strength by 5# each Reduce fatigue symptoms by 20% during daily activities Demo understanding of ergonomic and activity modifications to prevent symptom exacerbation Skilled Nursing Goals: Pain free left wrist with functional tasks Improve bilateral facs teacher strength by 10# Minimize numbness in the right second fingertip and improve sensory function Improved hand function as evidence by Quick DASH <30% Treatment Plan: Therapeutic Exercise Therapeutic Activity Home Exercise Program Splinting Patient Education Desensitization/Sensory Re-ed Ultrasound Paraffin MHP Soft Tissue Mobilization Kinesiotaping Electronically Signed By: Delmi Nobles MS OTR/L Please Sign and return to therapist. Thank you once again for your referral.
--- NOTE | 2024-09-24 08:48 | MHC.OT.DC ---
[address] [phone] F: [phone] Occupational Therapy Discharge Note Patient Name: Rebecca Ann Provider: Sammy De La Rosa Diagnosis: Bilateral carpal tunnel syndrome Date of Surgery: Date of Evaluation: 09/01/24 Date of Discharge: Treatments to Date: 8 Cancellations to Date: No Shows to Date: Discharge Status: Achieved Goals Improved Function Independent with HEP Discharge Summary: Rebecca is demonstrating excellent progress in occupational therapy. She reports a decrease in left wrist pain, currently rated at 0/10, with no increase in discomfort during therapeutic exercises. She continues to report isolated numbness at the tip of the right index finger. She has been compliant with night time splint wear and has been educated in activity modification and postural exercises/stretches throughout the day. 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 At this time, pt. is IND with HEP and in agreement with discharge. Thank you for this referral. Upon completion of OT services, pt. plans to begin PT at [facility] for [facility]. Electronically Signed By: Delmi Nobles MS OTR/L Reviewed/agree with student documentation: Therapist: Please Sign and return to therapist, thank you for your referral.
== END 2024-09-24 08:50 | disposition home or self-care (01) ==
LOC: HO.OTS 07:58
PROVIDERS: Visit Provider Internal Medicine Rheumatology
DX: R29.898 Other symptoms and signs involving the musculoskeletal system (principal); G56.03 Carpal tunnel syndrome, bilateral upper limbs
CPT/HCPCS: 97035; 97110; 97165; 97760

== ENCOUNTER 2024-09-28 08:51 | Outpatient (REF) | payer OTHER, SELFPAY ==
--- NOTE | ~2024-09-28 | XR_ITS ---
EXAMINATION: XR LUMBOSACRAL SPINE CLINICAL INFORMATION: M54.16 - Radiculopathy, lumbar region COMPARISON: None available. TECHNIQUE: Three views of the lumbosacral spine. FINDINGS: Mild levoconvex curvature of the thoracolumbar spine. Spina bifida occulta, S1. No acute cortical disruption or malalignment. No lytic or blastic lesions. XR/XR lumbar spine 2-3V IMPRESSION: Spina bifida occulta, S1. Mild levoconvex curvature. Electronically signed by: Guanaco Diaz MD 09/30/2024 07:31 AM EDT
[2024-09-28 10:03] LABS: MANUAL DIFF FLAG NO
[2024-09-28 10:06] LABS: Basophils Absolute Auto 0.1 X10*3/uL (0.0-0.2); Basophils Percent Auto 1.1 % (0-2); Eosinophils Absolute Auto 0.1 X10*3/uL (0.0-0.4); Eosinophils Percent Auto 2.4 % (0-4); Hematocrit 41.4 % (37.0-47.0); Hemoglobin 13.2 g/dl (12.0-16.0); Imm Gran Abs Auto 0.01 X10*3/uL (0.00-0.03); Imm Gran Pct Auto 0.2 % (0.0-0.4); Lymphocytes Absolute Auto 1.9 X10*3/uL (1.2-4.9); Lymphocytes Percent Auto 41.1 % (20-40); Mean Corpuscular HGB Conc 31.9 g/dl (31.0-35.0); Mean Corpuscular Hemoglobin 29.3 pg (27.0-33.0); Mean Platelet Volume 11.1 fL (9.4-12.3); Monocytes Absolute Auto 0.3 X10*3/uL (0.1-1.2); Monocytes Percent Auto 7.4 % (2-11); Neutrophils Absolute Auto 2.2 x10*3/uL (2.0-8.3); Neutrophils Percent Auto 47.8 % (45-73); Platelet Count 222 X10*3/uL (160-400); Red Cell Distribution Width 11.9 % (11.0-16.0); White Blood Count 4.6 X10*3/uL (4.8-10.8)
[2024-09-28 10:27] LABS: Alanine Aminotransferase 52 U/L (0-31); Alkaline Phosphatase 94 U/L (39-117); Aspartate Amino Transferase 48 U/L (5-31); Bilirubin Direct 0.2 mg/dL (0.0-0.5); Bilirubin Total 0.5 mg/dL (0.0-1.0); Total Protein 6.5 g/dL (6.5-8.0)
== END 2024-09-28 08:52 | disposition home or self-care (01) ==
LOC: HO.HMGCX 08:51
PROVIDERS: Visit Provider Internal Medicine Rheumatology
DX: R74.01 Elevation of levels of liver transaminase levels (principal); M54.16 Radiculopathy, lumbar region; D72.819 Decreased white blood cell count, unspecified
CPT/HCPCS: 36415; 72100; 80076; 85025

== ENCOUNTER → 2024-09-28 09:04 | Outpatient (BNV) | payer OTHER, SELFPAY | PROVIDERS: Visit Provider Radiology Diagnostic Radiology | DX: Q76.0 Spina bifida occulta (principal) | CPT/HCPCS: 72100 ==

== ENCOUNTER 2024-11-24 08:03 | Outpatient (RCR) | payer OTHER, SELFPAY ==
--- NOTE | 2024-10-23 09:41 | MHC.PT.EP ---
[facility] [place] Office [place] Office [place] Office [address] Juliana Billy [address] [phone] F: [phone] F: [phone] F: [phone] F: [phone] Physical Therapy Plan of Care Date of Evaluation: 10/23/24 Date of Surgery: Diagnosis: PT eval and treat: R53.1 Weakness Generalized weakness, Exercise strengthening program for upper and lower extremeties referred to PT from DR. 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 De La Rosa 08/26/24 Pt was also seen by Dr. De La Rosa on 09/10/24 following history of ER trip to [facility] on 09/09/24 with Concern for nerve impingement from lumbar spine contributing to patient's symptom. She has had improve pain since ER visit where she received Decadron and Toradol. Code(s): M54.16 - Radiculopathy, lumbar region Category: Medical Plan: She will take Flexeril at night She will take naproxen 500 mg twice a day until pain resolves L-spine x-ray ordered Return to clinic in 3 months. Pt presents to the office for PT evaluation on 10/23/24, upon completion of completing OT for her L hand, stating she has been experiencing intermittent sciatica initially on R side, now sometimes L LE all the way down to her ankles. Pt will benefit from a lumbar/hip stabilization program in addition to some upper body condition/strengthening. Pt reports history of previous shoulder injections due to GH joint pain. Upon assessment, Rebecca exhibits negative SLR, (+) lumbar instability testing, and fair>good squat mechanics, weakness in hip ext/abd/lumbar stabilizers. She was going to the gym and has been encouraged to implement a walking program>return to gym with goals of gaining insight of how to keep her self strong overall both UE/LE with goal of centralizing her radiating lower leg sx. She will be seen in PT twice a week x 4 weeks. PMH significant for HTN, history of B CTS surgery. Pt states she has not been taking naproxen was not aware this was prescribed Pt confirmed [facility] [address] as location of active pharmacy. Frequency and Duration: The patient will be seen 2x/week x 4 weeks Short Term Goals: 1. Pt will initiate self care/HEP program. 2. Pt will demonstrate strength of lumbar stabilizers. 3. Pt will demonstrate strength of hip extensors 4+/5. 4. Pt will demonstrate a log roll for bed mobiity. 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 Pt will be I with self-care/I HEP. 2. Pt will demonstrate negative lumbar instability testing. 3. Pt will demonstrate good functional squat with good body mechanics. 4. Pt will demonstrate bridge with good symmetry and pain <2/10 in L/S. 5. Centralization of sciatica sx and sx <2/10 in L/S. Treatment Plan: Modalities to reduce pain, spasms and effusion. Manual therapy to restore motion and function. Therapeutic exercise to improve strength and flexibility. Neuromuscular re-education for posture and balance. Therapeutic activities to return to functional activities of daily living. Electronically signed by: Chantelle Cavazos, PT,DPT Please sign and return to therapist. Thank you for your referral.
== END 2025-02-05 09:54 | disposition home or self-care (01) ==
LOC: HO.PTS 08:03
PROVIDERS: Visit Provider Internal Medicine Rheumatology
DX: R53.1 Weakness (principal)
CPT/HCPCS: 97110; 97161

== ENCOUNTER 2024-11-26 07:52 | Outpatient (AMB) | payer OTHER, SELFPAY ==
--- OUTSIDE RECORDS SUMMARY | 2024-11-26 07:55 | XMS_ITS | Clinical Summary ---
Author Organization [facility] Address [address] [place] [address] Phone Care Team Providers Care Sustainable Communities Designer Name Role Phone Hector Otto MD Primary Care Provider [phone] Allergies Active Allergy Reactions Criticality Noted Date Comments Lisinopril Cough 09/09/2024 Medications cyclobenzaprine (FLEXERIL) 10 mg tablet Take 1 tablet (10 mg total) by mouth 2 (two) times a day if needed for muscle spasms for up to 10 days. 20 tablet 09/09/2024 Active Encounters Date Type Department Care Team Description 11/06/2024 8:30 AM EDT Consult Orthopedic Surgery - [place] [address] [place] [phone] Jam Villatoro DPM Pain in left foot (Primary Dx); Hammertoe of left foot; Metatarsalgia of left foot 10/17/2024 8:37 PM EDT - 10/18/2024 2:47 AM EDT Emergency [facility] Emergency [address] [place] [phone] Bibiana Watson MD Hypomagnesemia (Primary Dx); Palpitation Discharge Disposition: Home or Self Care 09/09/2024 6:12 AM EDT - 09/09/2024 8:02 AM EDT Emergency [facility] Emergency [address] [place] [address] Sciatica of right side (Primary [...] Sign Reading Time Taken Comments Blood Pressure 126/92 10/18/2024 2:43 AM EDT Pulse 80 10/18/2024 2:43 AM EDT Temperature 36.6 C (97.9 F) 10/18/2024 12:16 AM EDT Respiratory Rate 20 10/18/2024 2:43 AM EDT Oxygen Saturation 100% 10/18/2024 2:43 AM EDT Inhaled Oxygen Concentration - - Weight 59 kg (130 lb) 11/06/2024 9:00 AM EDT Height 162.6 cm (5' 4.02 ) 11/06/2024 9:00 AM ED T Body Mass Index 22.3 11/06/2024 9:00 AM EDT Plan of Treatment Health Maintenance [...] history exists Hypertension/CHF/CAD Annual BMP Blood Test 10/17/2025 10/17/2024, 11/13/2023, 11/13/2023 DTaP,Tdap,and Td Vaccines (2 - Td [...] age to complete this topic Meningococcal B Vaccine Aged Out No l onger eligible based on patient's age to complete [...] on patient's age to complete this topic Procedures Procedure Name Priority Date/Time Associated Diagnosis Comments TROPONIN I HIGH SENSITIVITY STAT 10/17/2024 7:53 PM EDT XR CHEST 2 VIEWS STAT 10/17/2024 7:21 PM EDT CBC WITH AUTO DIFFERENTIAL STAT 10/17/2024 7:12 PM EDT B-TYPE NATRIURETIC PEPTIDE STAT 10/17/2024 7:12 PM EDT MAGNESIUM STAT 10/17/2024 7:12 PM EDT LIPASE STAT 10/17/2024 7:12 PM EDT COMPREHENSIVE METABOLIC PANEL STAT 10/17/2024 7:12 PM EDT CBC AND DIFFERENTIAL STAT 10/17/2024 7:12 PM EDT TROPONIN I HIGH SENSITIVITY STAT 10/17/2024 7:12 PM EDT ECG 12-LEAD STAT 10/17/2024 6:59 PM EDT from Last 3 Months Results * Troponin I high sensitivity (10/17/2024 7:53 PM EDT) Only the most recent of2 resultswithin the time period is included. High Sensitivity Troponin I 25 <=54 ng/L LAB CHEMISTRY METHOD 10/17/2024 8:[address] [facility] Blood Venous blood specimen / Unknown Venipuncture / Unknown 10/17/2024 7:53 PM EDT 10/17/2024 8:[address] [facility] - 10/17/2024 8:52 PM EDT High levels of biotin in samples may falsely decrease hsTroponin values. Use caution when interpreting hsTroponin results in patients taking biotin who exhibit renal impairment (eGFR <60) or in patients taking more than 20 mg/day of biotin. us Jacky Jimenes DO LAB BLOOD ORDERABLES Final Res ult [facility] [address] [place] [address], [place] [phone] * XR Chest 2 Views (10/17/2024 7:21 PM EDT) Anatomical Region Laterality Modality Body Radiographic Sonia ging 10/18/2024 6:40 AM EDT Impressions 10/18/2024 6:41 AM EDT No acute cardiopulmonary process seen. Mild dextroscoliosis dorsal spine -------- FINAL REPORT -------- Dictated By: Anam Sandoval Dictated Date: 10/18/2024 06:40 ET Assigned Physician: Anam Sandoval Reviewed and Electronically Signed By: Anam Sandoval Signed Date: 10/18/2024 06:41 ET Workstation ID: [id number] Transcribed By: Self Edit Transcribed Date: 10/18/2024 06:40 ET Narrative 10/18/2024 6:41 AM EDT EXAMINATION: Chest 2 views. CLINICAL INDICATION: Chest pain. COMPARISON: Chest 2 views 11/29/2022. FINDINGS: The lungs are well expanded and clear of acute process. The heart size and pulmonary vascularity is normal. There is mild dextroscoliosis of dorsal spine. No aggressive lytic or sclerotic process seen. Procedure Note Anam Sandoval MD - 10/18/2024 EXAMINATION: Chest 2 views. CLINICAL INDICATION: Chest pain. COMPARISON: Chest 2 views 11/29/2022. FINDINGS: The lungs are well expanded and clear of acute process. Theheart size and pulmonary vascularity is normal. There is milddextroscoliosis of dorsal spine. No aggressive lytic or sclerotic processseen. IMPRESSION: No acute cardiopulmonary process seen. Mild dextroscoliosis dorsal spine -------- FINAL REPORT -------- Dictated By: Anam Sandoval Dictated Date: 10/18/2024 06:40 ET Assigned Physician: Anam Sandoval Reviewed and Electronically Signed By: Anam Sandoval Signed Date: 10/18/2024 06:41 ET Workstation ID: [id number] Transcribed By: Self Edit Transcribed Date: 10/18/2024 06:40 ET Jacky Jimenes DO IMG XR PROCEDURES Final Result * (ABNORMAL) CBC auto differential (10/17/2024 7:12 PM EDT) WBC 4.7(L) 4.8 - 10.8 K/[facility] LAB HEMETOLOGY METHOD 10/17/2024 7:[address] [facility] RBC 4.90(H) 3.80 - 4.80 M/mcL LAB HEMETOLOGY METHOD 10/17/2024 7:[address] [facility] Hemoglobin 13.9 11.5 - 16.0 g/dL LAB HEMETOLOGY METHOD 10/17/2024 7:[address] [facility] Hematocrit 44.0 35.0 - 47.0 % LAB HEMETOLOGY METHOD 10/17/2024 7:[address] [facility] MCV 90.3 79.0 - 98.0 FL LAB HEMETOLOGY METHOD 10/17[facility]2024 [facility] MCH 28.5 27.0 - 32.0 pcg LAB HEMETOLOGY METHOD 10/17/2024 7:[address] [facility] MCHC 31.6(L) 32.0 - 37.0 g/dL LAB HEMETOLOGY METHOD 10/17/2024 7:56 PM [facility] RDW 11.8 11.0 - 15.0 % LAB HEMETOLOGY METHOD 10/17/2024 7:56 PM [facility] Platelets 240 130 - 400 K/mcL LAB HEMETOLOGY METHOD 10/17/2024 7:56 PM [facility] MPV 11.5(H) 7.0 - 11.0 FL LAB HEMETOLOGY METHOD 10/17/2024 7:56 PM [facility] NRBC 0.0 <1.0 % LAB HEMETOLOGY METHOD 10/17/2024 7:56 PM [facility] NRBC Absolute 0.00 <0.10 K/mcL LAB HEMETOLOGY METHOD 10/17/2024 7:56 PM [facility] Neutrophils Relative 44.7 % LAB HEMETOLOGY METHOD 10/17/2024 7:[address] [facility] Lymphocytes Relative 44.5 % LAB HEMETOLOGY METHOD 10/17/2024 7:56 PM [facility] Monocytes Relative 8.2 % LAB HEMETOLOGY METHOD 10/17/2024 7:56 PM [facility] Eosinophils Relative 1.5 % LAB HEMETOLOGY METHOD 10/17/2024 7:[address] [facility] Basophils Relative 1.1 % LAB HEMETOLOGY METHOD 10/17/2024 7:[address] [facility] Immature Granulocytes Relative 0.0 % LAB HEMETOLOGY METHOD 10/17/2024 7:[address] [facility] Neutrophils Absolute 2.12 1.50 - 7.00 K/mcL LAB HEMETOLOGY METHOD 10/17/2024 7:[address] [facility] Lymphocytes Absolute 2.11 1.00 - 5.00 K/mcL LAB HEMETOLOGY METHOD 10/17/2024 7:[address] [facility] Monocytes Absolute 0.39 0.20 - 1.00 K/mcL LAB HEMETOLOGY METHOD 10/17/2024 7:[address] [facility] Eosinophils Absolute 0.07 0.00 - 0.50 K/mcL LAB HEMETOLOGY METHOD 10/17/2024 7:[address] [facility] Basophils Absolute 0.05 0.00 - 0.20 K/mcL LAB HEMETOLOGY METHOD 10/17/2024 7:[address] [facility] Immature Granulocytes Absolute 0.00 0.00 - 0.03 K/mcL LAB HEMETOLOGY METHOD 10/17/2024 7:[address] [facility] Blood Venous blood specimen / Unknown Venipuncture / Unknown 10/17/2024 7:12 PM EDT 10/17/2024 7:50 PM EDT us Jacky Jimenes DO LAB BLOOD ORDERABLES Final Res ult [facility] [address] [place] [address], * B-type natriuretic peptide (10/17/2024 7:12 PM EDT) BNP 34 <=100 pcg/mL LAB CHEMISTRY METHOD 10/17/2024 8:[address] [facility] Blood Venous blood specimen / Unknown Venipuncture / Unknown 10/17/2024 7:12 PM EDT 10/17/2024 7:50 PM EDT us Jacky Jimenes DO LAB BLOOD ORDERABLES Final Res ult Performing Organization Address [facility] de Phone Number [facility] [address] [place] [address], [place] [phone] * (ABNORMAL) Magnesium (10/17/2024 7:12 PM EDT) [facility] Magnesium 1.2(L) 1.9 - 2.6 mg/dL LAB CHEMISTRY METHOD 10/17/2024 8:[address] [facility] Blood Venous blood specimen / Unknown Venipuncture / Unknown 10/17/2024 7:12 PM EDT 10/17/2024 7:50 PM EDT us Jacky Jimenes DO LAB BLOOD ORDERABLES Final Res ult Performing Organization Address [facility] de Phone Number [facility] [address] [place] [address], [place] [phone] * Lipase (10/17/2024 7:12 PM EDT) [facility] Lipase 40 13 - 75 unit/L LAB CHEMISTRY METHOD 10/17/2024 8:[address] [facility] Blood Venous blood specimen / Unknown Venipuncture / Unknown 10/17/2024 7:12 PM EDT 10/17/2024 7:50 PM EDT us Jacky Jimenes DO LAB BLOOD ORDERABLES Final Res ult [facility] [address] [place] [address], * (ABNORMAL) Comprehensive metabolic panel (10/17/2024 7:12 PM EDT) Sodium 137 133 - 145 mmol/L LAB CHEMISTRY METHOD 10/17/2024 8:[address] [facility] Potassium 3.7 3.5 - 5.5 mmol/L LAB CHEMISTRY METHOD 10/17/2024 8:[address] [facility] Chloride 102 96 - 110 mmol/L LAB CHEMISTRY METHOD 10/17/2024 8:[address] [facility] CO2 25 21 - 32 mmol/L LAB CHEMISTRY METHOD 10/17/2024 8:34 PM [facility] Anion Gap 10 3 - 11 LAB CHEMISTRY METHOD 10/17/2024 8:34 PM [facility] Glucose 85 70 - 100 mg/dL LAB CHEMISTRY METHOD 10/17/2024 8:34 PM [facility] BUN 14 5 - 25 mg/dL LAB CHEMISTRY METHOD 10/17/2024 8:34 PM [facility] Creatinine 0.72 0.50 - 1.10 mg/dL LAB CHEMISTRY METHOD 10/17/2024 8:[facility] eGFR 103 >=60 mL/min/1. 73m2 LAB CHEMISTRY METHOD 10/17/2024 8:34 PM [facility] Comment:Calculation based on the Chronic Kidney Disease Epidemiology Collaboration (CKD-EPI) equation refit without adjustment for race. BUN/Creatinine Ratio 19.4 LAB CHEMISTRY METHOD 10/17/2024 8:34 PM [facility] Calcium 9.6 8.5 - 10.5 mg/dL LAB CHEMISTRY METHOD 10/17/2024 8:34 PM [facility] AST (SGOT) 55(H) 10 - 42 unit/L LAB CHEMISTRY METHOD 10/17/2024 8:[address] [facility] ALT (SGPT) 61(H) 10 - 60 unit/L LAB CHEMISTRY METHOD 10/17/2024 8:[address] [facility] Alkaline Phosphatase 127(H) 42 - 121 unit/L LAB CHEMISTRY METHOD 10/17/2024 8:[address] [facility] Total Protein 7.2 6.0 - 8.0 g/dL LAB CHEMISTRY METHOD 10/17/2024 8:[address] [facility] Albumin 4.0 3.2 - 5.0 g/dL LAB CHEMISTRY METHOD 10/17/2024 8:[address] [facility] Total Bilirubin 0.5 0.0 - 1.4 mg/dL LAB CHEMISTRY METHOD 10/17/2024 8:[address] [facility] Blood Venous blood specimen / Unknown Venipuncture / Unknown 10/17/2024 7:12 PM EDT 10/17/2024 7:50 PM EDT us Jacky Jimenes DO LAB BLOOD ORDERABLES Final Res ult [facility] [address] [place] [address], * ECG 12 lead (10/17/2024 6:59 PM EDT) Ventricular Rate ECG 103 BPM GEMUSE Atrial Rate 103 BPM GEMUSE P-R Interval 120 ms GEMUSE QRS Duration 78 ms GEMUSE Q-T Interval 328 ms GEMUSE QTc 429 ms GEMUSE P Wave [place] 54 degrees GEMUSE R [place] 21 degrees GEMUSE T [place] 38 degrees GEMUSE ECG Interpretation Sinus tachycardia When compared with ECG of 29-NOV-2022 13:12, No significant change was found Confirmed by BRITNEY FRANCISCO ([id number]) on 10/17/2024 11:28:46 PM GEMUSE 10/17/2024 6:59 PM EDT 10/17/2024 11:28 PM EDT us Bibiana Watson MD ECG ORDERABLES Final Result GEMUSE from Last 3 Months Insurance [facility] MEDICAID ADVANTAGE Care Teams Sustainable Communities Designer Relationship Specialty Start Date End Date Hector Otto MD [address] [place] [address] PCP - General Internal Medicine 10/20/24
--- NOTE | 2024-11-26 07:56 | A.OFFVIS_ITS ---
Vital Signs 11/26/24 08:02 11/26/24 08:03 Height 5 ft 3 in 5 ft 3 in Weight 289 lb 3.944 oz 131 lb 2 oz BMI 51.2 23.2 BP 120/80 Blood Pressure Location Lt brachial Position Sitting Pulse 71 Pulse Source Pulse Oximeter Pulse Oximetry (%) 99 Oxygen Delivery Method Room Air Intake Visit Reasons: 3 Months Intake Note: Patient presents for 3 months follow up. Allergies lisinopril Adverse Reaction (Mild, Verified 11/26/24 08:01) Cough HPI HPI 3 Months: Details: She has muscle fatigue in arms in the morning. 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 Lower back oksana n and radicular symptoms have resolved. She had benefit with occupational therapy in reducing numbness in her right finger. She continues to experience right 3rd finger numbness and shock-like symptoms in her left wrists. She has weakness in her hands. [facility] Medical History Carpal tunnel syndrome Arthritis Hypertension Surgical History History of carpal tunnel surgery Social History (Updated 11/26/24 @ 08:02 by RAMIN Holbrook) Household Members: Family Housing: Apartment Alcohol intake: former Patient Tobacco Use Status: Never used Tobacco Physical Exam Vital Signs: Last Vital Signs Pulse 71 11/26/24 08:03 BP 120/80 11/26/24 08:03 Pulse Ox 99 11/26/24 08:03 Oxygen Delivery Method Room Air 11/26/24 08:03 BMI result Body Mass Index 23.2 Const Other: General: Comfortable Skin: No lesions seen MSK: No synovitis. Normal range of motion of upper extremities and lower extremities. She has pain with bilateral shoulder abduction. Right hip external rotation is painful. Valgus deformity of bilateral knees. Results Reviewed Results Reviewed: Ordering Physician: Sammy De La Rosa MD Date of Service: 09/28/24 Procedure(s): XR lumbar spine 2-3V Accession Number(s): [id number] cc: Sammy De La Rosa MD~ EXAMINATION: XR LUMBOSACRAL SPINE CLINICAL INFORMATION: M54.16 - Radiculopathy, lumbar region COMPARISON: None available. TECHNIQUE: Three views of the lumbosacral spine. FINDINGS: Mild levoconvex curvature of the thoracolumbar spine. Spina bifida occulta, S1. No acute cortical disruption or malalignment. No lytic or blastic lesions. XR/XR lumbar spine 2-3V IMPRESSION: Spina bifida occulta, S1. Mild levoconvex curvature. Assessment & Plan Assessment & Plan (1) Lumbar back pain with radiculopathy affecting right lower extremity: Comment: Resolved. Initial concern for nerve impingement from lumbar spine contributing to patient's symptom. L-spine x-ray revealed levoscoliosis and spina bifida occulta S1 but it would not cause her symptoms. She has had improve pain since ER visit where she received Decadron and Toradol. Code(s): M54.16 - Radiculopathy, lumbar region Category: Medical Plan: Continue PT exercises Return to clinic 6 months or sooner if needed (2) Subacromial impingement of left shoulder: Comment: Resolved with cortisone injection from a past visit. Intermittent bilateral pain with muscle fatigue. Improvement with PT. She has one more PT session focusing on shoulder pain. Code(s): M75.42 - Impingement syndrome of left shoulder Category: Medical Plan: Continue PT and home exercise program RTC 6 months or sooner if needed (3) Hepatic steatosis: Comment: Contributing to transaminitis Code(s): K76.0 - Fatty (change of) liver, not elsewhere classified Category: Medical Plan: We discussed importance of healthy eating and exercise (4) Bilateral carpal tunnel syndrome: Comment: Status post carpal tunnel release. She is having symptoms related to carpal tunnel syndrome from failed surgery. She completed OT to improve hand strength with benefit. Code(s): G56.03 - Carpal tunnel syndrome, bilateral upper limbs Category: Medical Plan: Continue hand exercises learned from occupational therapy If symptoms progress, I have asked her to contact hand surgeon for evaluation Medications: Discontinued methylprednisolone (Medrol (Rock)) Discontinued Reason: Doctor's Order PO PER PKG DIR for 6 days 21 ea 0RF Coding Level of Care Code Est Pt Level 4 (81876) Complex EM visit Add On G2211 Diagnoses Lumbar back pain with radiculopathy affecting right lower extremity M54.16 Subacromial impingement of left shoulder M75.42 Hepatic steatosis K76.0 Bilateral carpal tunnel syndrome G56.03
[2024-11-26 08:02] VITALS: BMI 51.2
[2024-11-26 08:03] VITALS: BP 120/80; PULSE 71; O2SAT 99; BMI 23.2
== END 2024-11-26 08:25 | disposition home or self-care (01) ==
LOC: HO.RHES 07:52
PROVIDERS: PCP Internal Medicine; Visit Provider Internal Medicine Rheumatology
DX: M75.42 Impingement syndrome of left shoulder (principal); K76.0 Fatty (change of) liver, not elsewhere classified; G56.03 Carpal tunnel syndrome, bilateral upper limbs
CPT/HCPCS: 99214; G2211

== ENCOUNTER → 2024-11-26 07:52 | Outpatient (BNVA) | payer OTHER, SELFPAY | PROVIDERS: PCP Internal Medicine; Visit Provider Internal Medicine Rheumatology | DX: G56.03 Carpal tunnel syndrome, bilateral upper limbs (principal); M75.42 Impingement syndrome of left shoulder; K76.0 Fatty (change of) liver, not elsewhere classified | CPT/HCPCS: 99212 ==

== ENCOUNTER 2025-02-02 12:46 | Outpatient (AMB) | payer OTHER, SELFPAY ==
[2025-02-02 12:50] VITALS: BP 150/96; PULSE 80; O2SAT 97; BMI 23.2
--- NOTE | 2025-02-02 12:50 | MHC.OFFVIS ---
Vital Signs 02/02/25 12:50 Height 5 ft 3 in Weight 130 lb 11.746 oz BMI 23.2 BP 150/96 H Blood Pressure Location Rt brachial Position Sitting Pulse 80 Pulse Source Pulse Oximeter Pulse Oximetry (%) 97 Oxygen Delivery Method Room Air Intake Visit Reasons: shoulder pain Intake Note: Patient presents today for left shoulder pain. Accompanied by: Self / Same As Patient Allergies lisinopril Adverse Reaction (Mild, Verified 02/02/25 12:51) Cough HPI HPI shoulder pain: Details: When she has been experiencing left shoulder pain. A few days ago right shoulder pain started. She has pain that is radiating down from the shoulder to her arm. She also has pain radiating from her shoulder to her neck. Sometimes her hands goes numb. She is having difficulty lifting. She is not using her left arm anymore. She is relying on her right arm. Using Voltaren gel with benefit. Doing exercises at home. She does not have time for physical therapy at this time. She went to 1 session of occupational therapy [facility] Medical History Carpal tunnel syndrome Arthritis Hypertension Surgical History History of carpal tunnel surgery Social History (Updated 11/26/24 @ 08:02 by RAMIN Holbrook) Household Members: Family Housing: Apartment Alcohol intake: former Patient Tobacco Use Status: Never used Tobacco Physical Exam Vital Signs: Last Vital Signs Pulse 80 02/02/25 12:50 BP 150/96 H 02/02/25 12:50 Pulse Ox 97 02/02/25 12:50 Oxygen Delivery Method Room Air 02/02/25 12:50 BMI result Body Mass Index 23.2 Const Other: General: Comfortable Skin: No lesions seen MSK: Tender left shoulder. Tender anteriorly, subacromial region and posteriorly. Full range of motion. Positive painful arc sign and Mayfield Neal test. Tender left trapezius. Tender left cervical paraspinal muscles. No spinous process tenderness of cervical spine. Office Procedures AMB Joint Injection/Aspiration Joint Injection/Aspiration Details: Left subacromial bursa Prep: site was prepped using aseptic technique Injected into each site: 40 mg of, Kenalog, with 1 mL of and 1% plain lidocaine Procedure: Informed verbal consent was obtained. The patient tolerated the procedure well. Postprocedure protocol was discussed with patient. Coding 22992 - Large joint Procedure code (CPT) selection complete Office Meds lidocaine (PF) 10 mg/mL (1 %) injection solution Performing Provider: Sammy De La Rosa MD Performing Location: [facility] Administered by: Sammy De La Rosa MD on 02/02/25 13:36 Dose Route Admin Location Dispensed Lot Number Expiration Date [facility] [employer] Professor 10 mg Infiltration 2 mL [id number] [employer] Total Dispensed Waste 2 mL 50 % Kenalog 40 mg/mL suspension for injection Performing Provider: Sammy De La Rosa MD Performing Location: [facility] Administered by: Sammy De La Rosa MD on 02/02/25 13:36 Dose Route Admin Location Dispensed Lot Number Expiration Date [facility] [employer] Professor 40 mg intrabursal 1 mL [id number] [employer] Total Dispensed Waste 1 mL 0 % Assessment & Plan Assessment & Plan (1) Subacromial impingement of left shoulder: Comment: Recurrent. She received benefit with cortisone injection from May 2024 to treat impingement syndrome. Failed PT exercises at home and diclofenac gel. She also has new trapezius/cervical paraspinal strain and left arm numbness. Left arm numbness may be related to carpal tunnel syndrome. She received new cock-up wrist braces from PCP but had to have them refitted. Code(s): M75.42 - Impingement syndrome of left shoulder Category: Medical Plan: Patient received left shoulder subacromial cortisone injection X-ray left shoulder ordered to evaluate for shoulder pathology contributing to her recurrent pain She will return to medical supply store to warp picker cock-up wrist brace and start wearing them at night If she continues to have pain radiating down arm contributing to numbness of left hand, she will call office for further workup: C-spine x-ray, left arm EMG Return to clinic in May Orders: Orders AMB Joint Injection/Aspiration Today M75.42 - Impingement syndrome of left shoulder XR shoulder LT min 2V Today M75.42 - Impingement syndrome of left shoulder Coding Level of Care Code Est Pt Level 3 (82409) Complex EM visit Add On G2211 Diagnoses Subacromial impingement of left shoulder M75.42 CPT Codes Coding - 55966 Large joint: 36628 - Large joint ([id number])
--- OUTSIDE RECORDS SUMMARY | 2025-02-02 13:30 | XMS_ITS | Clinical Summary ---
Author Organization [facility] Address [address] [place] [address] Phone Care Team Providers Care Chair Lift Operator Name Role Phone Hector Otto MD Primary Care Provider [phone] Allergies Active Allergy Reactions Criticality Noted Date Comments Lisinopril Cough 09/09/2024 Medications cyclobenzaprine (FLEXERIL) 10 mg tablet Take 1 tablet (10 mg total) by mouth 2 (two) times a day if needed for muscle spasms for up to 10 days. 20 tablet 09/09/2024 Active Encounters Date Type Department Care Team Description 01/25/2025 11:00 AM EDT Office Visit Orthopedic Surgery [facility] [address] [phone] Jam Villatoro A, DPM Pain in left foot (Primary Dx); Metatarsalgia of left foot; Eccrine poroma of foot, left 11/06/2024 8:30 AM EDT Consult Orthopedic Surgery [facility] [address] [phone] Jam Villatoro A, DPM Pain in left foot (Primary Dx); Hammertoe of left foot; Metatarsalgia of left foot from Last 3 Months Surgical History Surgery [...] Panel) 05/13/2022 Colorectal Cancer Screening: Colonoscopy 05/13/2022 HIV Screening 05/13/2022 Hepatitis C Screening 05/13/2022 Social Influencers of Health Screening 05/13/2022 COVID-19 Vaccine ( season) 2024 04/05/2023, 05/23/2022, 07/28/2021, Additional history exists Depression Screening 06/10/2024 Influenza Vaccine (#1) 2025 , 03/21/2023, 03/23/2022, Additional history exists Hypertension/CHF/CAD Annual BMP Blood Test 11/19/2025 11/19/2024, 11/19/2024, 10/17/2024, Additional history exists DTaP,Tdap,and Td Vaccines (3 - Td or Tdap) 01/11/2035 01/11/2025, 06/27/2018 Hepatitis B Vaccines Completed 09/08/2007, 04/07/2007, 03/07/2007 HIB Vaccines Aged Out No longer eligi [...] 5 Years) and At-Risk Patients (6 to 49 Years) Aged Out No longer eligible based on patient's age to complete this topic RSV Immunization Patients Under 20 months Aged Out No longer eligible based on patient's age to complete this topic Varicella Vaccines Aged Out No longer eligible based on patient's age to complete this topic Procedures Procedure Name Priority Date/Time Associated Diagnosis Comments COMPREHENSIVE METABOLIC PANEL STAT 10/17/2024 7:12 PM EDT from Last 3 Months or Most Recently Relevant to Health Maintenance Insurance [facility] MEDICAID ADVANTAGE Care Teams Chair Lift Operator Relationship Specialty Start Date End Date Hector Otto MD [address] [place] [address] PCP - General Internal Medicine 10/20/24
--- OUTSIDE RECORDS SUMMARY | 2025-02-02 13:30 | XMS_ITS | Clinical Summary ---
Author Organization [facility] Address [address] [address] Phone Care Team Providers Care Promotion Officer Name Role Phone Hector Otto MD Primary Care Provider [phone] Allergies Active Allergy Reactions Criticality Noted Date [...] mouth every other day 45 tablet 3 12/01/19 23 Active Magnesium Chloride (MagDelay) 64 MG tablet delayed-releas e TAKE ONE TABLET BY MOUTH TWICE A DAY 180 tablet 3 02/04/20 24 Active D3 High Potency 25 MCG (1000 UT) capsule TAKE ONE CAPSULE BY MOUTH EVERY DAY 90 capsule 3 01/28/20 25 Active D3 High Potency 25 MCG (1000 UT) capsule TAKE ONE CAPSULE BY MOUTH EVERY DAY 90 capsule 3 02/04/20 24 025 Discontinued Active Problems Problem Noted Date Diagnosed Date [...] Overview (09/20/2021): 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 [address] [facility] [address] [place] [phone] Kulwinder Avila MD Chronic kidney disease stage 2 (Primary Dx); Autosomal dominant tubulointerstitial kidney disease; Acquired renal cystic disease; Essential hypertension; Gitelman syndrome; Hyperparathyroidism due to renal insufficiency (HCC); Hypokalemia; Hypomagnesemia; Multiple renal cysts; Renal stone 11/19/2024 Orders Only [facility] [address] [phone] Kulwinder Avila MD from Last 3 Months Immunizations Immunization Administration Dates Next Due Hep B, Unspecified [...] Sign Reading Time Taken Comments Blood Pressure 122/86 11/23/2024 7:59 AM EDT Pulse 87 11/23/2024 7:59 AM EDT Temperature - - Respiratory Rate - - Oxygen Saturation 97% 11/23/2024 7:59 AM EDT Inhaled Oxygen Concentration - - Weight 59 kg (130 lb) 11/23/2024 7:59 AM EDT Height 160 cm (5' 3 ) 02/21/2022 9:28 AM EDT Body Mass Index 23.03 02/21/2022 9:28 AM EDT Plan of Treatment Upcoming Encounters Date Type Department Care Team (Late st Contact Info) Description 11/23/2025 8:40 AM EDT Office Visit [facility] [address] [phone] Kulwinder Avila MD [address] [phone] Health Maintenance Due Date Last Done Comments Hepatitis B Vaccine (1 of 3 - 19+ 3-dose series) 1995 09/08/2007, 04/07/2007, 03/07/2007 Pneumococcal Vaccine: Peds ( 0 to 5 Years) and At-Risk Patients (6 to 49 Years) (1 of 2 - PCV) 1995 Influenza Vaccine (#1) 2025 4, 03/21/2023, 03/23/2022, Additional history exists Procedures Procedure Name Priority Date/Time Associated Diagnosis Comments PTH, INTACT Routine 11/19/2024 8:18 AM EDT MAGNESIUM Routine 11/19/2024 8:18 AM EDT PHOSPHATE ( PHOSPHORUS) Routine 11/19/2024 8:18 AM EDT URIC ACID Routine 11/19/2024 8:18 AM EDT VITAMIN D 25 HYDROXY Routine 11/19/2024 8:18 AM EDT PROTEIN / CREATININE RATIO, URINE Routine 11/19/2024 8:18 AM EDT URINALYSIS, COMPLETE Routine 11/19/2024 8:18 AM EDT COMPREHENSIVE METABOLIC PANEL Routine 11/19/2024 8:18 AM EDT CBC AND DIFFERENTIAL Routine 11/19/2024 8:18 AM EDT MICROSCOPIC EXAMINATION - DO NOT USE Routine 11/19/2024 8:18 AM EDT from Last 3 Months Results * Urinalysis, Complete w/reflex to Culture (11/19/2024 8:18 AM EDT) Specific [place], Urine 1.020 1.005 - 1.030 [facility] pH Urine 6.0 5.0 - 7.5 [facility] Color, Urine Yellow Yellow [facility] Appearance Urine Clear Clear [facility] [place] WBC Esterase Urine Negative Negative [facility] Protein, Ur Negative Negative/Tra ce [facility] Glucose, Ur Negative Negative [facility] Ketones, Urine Negative Negative [facility] [place] Blood Urine Negative Negative [facility] [phone] Bilirubin Urine Negative Negative [facility] [facility] Urobilinogen Urine 0.2 0.2 - 1.0 mg/dL [facility] Nitrite, Urine Negative Negative [facility] Microscopic Examination Comment [facility] Comment:Microscopic follows if indicated. Other Microsc. Observations See below: [facility] [phone] Comment:Microscopic was daniel cated and was performed. URINALYSIS REFLEX Comment [facility] [phone] Comment:This specimen will n ot reflex to a Urine Culture. 11/19/2024 8:18 AM EDT 11/19/2024 us Kulwinder Avila MD LAB URINE ORDERABLES Final Re sult [facility] [address] [place] [address] * (ABNORMAL) Microscopic Examination (11/19/2024 8:18 AM EDT) WBC, Urine 0-5 0 - 5 /hpf [facility] RBC, Urine None seen 0 - 2 /hpf [facility] Squamous Epithelial, Urine >10(A) 0 - 10 /hpf [facility] Casts None seen None seen /lpf [facility] Bacteria, Urine Few None seen/Few [facility] 11/19/2024 8:18 AM EDT 11/19/2024 Kulwinder Avila MD LAB MICROBIOLOGY - GENERAL OR DERABLES Final Result [facility] [address] [place] [address] * Protein, Total, Random Urine w/Creatinine (Protein/Creat Ratio) (11/19/2024 8:18 AM EDT) Creatinine, Ur 85.4 Not Estab. mg/dL [facility] Protein, Ur 10.4 Not Estab. mg/dL [facility] Urine Protein/Creatin ine Ratio 122 0 - 200 mg/g creat [facility] 11/19/2024 8:18 AM EDT 11/19/2024 us Kulwinder Avila MD LAB URINE ORDERABLES Final Re sult Performing Organization Address City/[facility]/ZIP Co de Phone Number [facility] [address] [place] [address] * Vitamin D 25 Hydroxy (11/19/2024 8:18 AM EDT) Vitamin D, 25-OH, Total 37.9 30.0 - 100.0 ng/mL [facility] Comment: Vitamin D deficiency has been defined by the [place] of Medicine and an Endocrine Society practice guideline as a level of serum 25-OH vitamin D less than 20 ng/mL (1,2). The Endocrine Society went on to further define vitamin D insufficiency as a level between 21 and 29 ng/mL (2). 1. IOM ([place] of Medicine). 2010. Dietary reference intakes for calcium and D. [place]: The National Academies Press. 2. Silva MF, Concepcion CELAYA, Wil HERNANDEZ, et al. Evaluation, treatment, and prevention of vitamin D deficiency: an Endocrine Society clinical practice guideline. JCEM. 2010; 96(7):1911-30. 11/19/2024 8:18 AM EDT 11/19/2024 us Kulwinder Avila MD LAB BLOOD ORDERABLES Final Re sult [facility] [address] [place] [address] * CBC and Differential (11/19/2024 8:18 AM EDT) WBC 5.2 3.4 - 10.8 x10E3/uL [facility] RBC 4.25 3.77 - 5.28 x10E6/uL [facility] Hemoglobin 12.7 11.1 - 15.9 g/dL [facility] Hematocrit 40.0 34.0 - 46.6 % [facility] MCV 94 79 - 97 fL [facility] MCH 29.9 26.6 - 33.0 pg [facility] MCHC 31.8 31.5 - 35.7 g/dL [facility] RDW 11.7 11.7 - 15.4 % [facility] Platelets 209 150 - 450 x10E3/uL [facility] Neutrophils Relative 52 Not Estab. % [facility] Lymphocytes Relative 37 Not Estab. % [facility] Monocytes 7 Not Estab. % [facility] Eosinophils Relative 3 Not Estab. % [facility] Basophils Relative 1 Not Estab. % [facility] Neutrophils Absolute 2.7 1.4 - 7.0 x10E3/uL [facility] Lymphocytes Absolute 1.9 0.7 - 3.1 x10E3/uL [facility] Monocytes Absolute 0.4 0.1 - 0.9 x10E3/uL [facility] Eosinophils Absolute 0.2 0.0 - 0.4 x10E3/uL [facility] Basophils Absolute 0.1 0.0 - 0.2 x10E3/uL [facility] Immature Granulocytes 0 Not Estab. % [facility] Immature Grans (Absolute) 0.0 0.0 - 0.1 x10E3/uL [facility] 11/19/2024 8:18 AM EDT 11/19/2024 Kulwinder Avila MD LAB BLOOD ORDERABLES Final Re sult [facility] [address] [place] [phone] * Uric Acid (11/19/2024 8:18 AM EDT) Uric Acid 3.8 2.6 - 6.2 mg/dL [facility] Comment:Therapeutic target f or gout patients: <6.0 11/19/2024 8:18 AM EDT 11/19/2024 Kulwinder Avila MD LAB BLOOD ORDERABLES Final Re sult [facility] [address] [place] [address] * (ABNORMAL) Phosphorus (11/19/2024 8:18 AM EDT) Phosphorus 2.9(L) 3.0 - 4.3 mg/dL [facility] 11/19/2024 8:18 AM EDT 11/19/2024 us Kulwinder Avila MD LAB BLOOD ORDERABLES Final Re sult Performing Organization Address City/[facility]/ZIP Co de Phone Number [facility] [address] [place] [address] * PTH, Intact (11/19/2024 8:18 AM EDT) PTH 58 15 - 65 pg/mL [facility] 11/19/2024 8:18 AM EDT 11/19/2024 us Kulwinder Avila MD LAB BLOOD ORDERABLES Final Re sult Performing Organization Address [facility]/ZIP Co de Phone Number [facility] [address] [place] [address] * (ABNORMAL) Magnesium (11/19/2024 8:18 AM EDT) Magnesium 1.2(L) 1.6 - 2.3 mg/dL [facility] 11/19/2024 8:18 AM EDT 11/19/2024 us Kulwinder Avila MD LAB BLOOD ORDERABLES Final Re sult Performing Organization Address City/[facility]/ZIP Co de Phone Number [facility] [address] [place] [address] * (ABNORMAL) Comprehensive Metabolic Panel (11/19/2024 8:18 AM EDT) [facility] Glucose 75 70 - 99 mg/dL [facility] BUN 17 6 - 24 mg/dL [facility] Creatinine 0.56(L) 0.57 - 1.00 mg/dL [facility] eGFR CKD-EPI CR 2020 113 >59 mL/min/1.7 3 [facility] BUN/Creatinine Ratio 30(H) 9 - 23 [facility] Sodium 138 134 - 144 mmol/L [facility] Potassium 4.3 3.5 - 5.2 mmol/L [facility] Chloride 103 96 - 106 mmol/L [facility] Bicarbonate (CO2) 22 20 - 29 mmol/L [facility] Calcium 9.2 8.7 - 10.2 mg/dL [facility] Total Protein 6.3 6.0 - 8.5 g/dL [facility] Albumin 4.2 3.9 - 4.9 g/dL [facility] Globulin 2.1 1.5 - 4.5 g/dL [facility] Total Bilirubin 0.5 0.0 - 1.2 mg/dL [facility] Alkaline Phosphatase 93 44 - 121 IU/L [facility] AST (SGOT) 24 0 - 40 IU/L [facility] ALT (SGPT) 22 0 - 32 IU/L [facility] 11/19/2024 8:18 AM EDT 11/19/2024 us Kulwinder Avila MD LAB BLOOD ORDERABLES Final Re sult [facility] [address] [place] [address] from Last 3 Months Insurance [employer] Medicaid [employer] Medicaid Care Teams Promotion Officer Relationship Specialty Start Date End Date Hector Otto MD [address] [place] [address] PCP - General Internal Medicine 02/02/21
== END 2025-02-02 13:45 | disposition home or self-care (01) ==
LOC: HO.RHES 12:47
PROVIDERS: PCP Internal Medicine; Visit Provider Internal Medicine Rheumatology
DX: M75.42 Impingement syndrome of left shoulder (principal)
CPT/HCPCS: 20610; 99213

== ENCOUNTER → 2025-02-02 12:46 | Outpatient (BNVA) | payer OTHER, SELFPAY | PROVIDERS: PCP Internal Medicine; Visit Provider Internal Medicine Rheumatology | DX: M75.42 Impingement syndrome of left shoulder (principal) | CPT/HCPCS: 20610; 99212; J2003; J3300 ==

== ENCOUNTER 2025-03-22 09:28 | Outpatient (REF) | payer OTHER, SELFPAY ==
--- NOTE | ~2025-03-22 | XR_ITS ---
CLINICAL HISTORY: M75.42 - Impingement syndrome of left shoulder --- Additional Notes or Special Instructions: Recurrent shoulder pain. Hx impingement syndrome 4 view left shoulder Comparison: None provided Findings: No fractures or dislocations. Severe degenerative changes of the acromioclavicular joint. There are calcifications surrounding the acromioclavicular joint and superior to the humerus which are indeterminate. There is a broad differential diagnosis including degenerative changes, metabolic conditions, crystal deposition, posttraumatic and neoplastic/inflammatory causes. MRI of the shoulder is recommended for further evaluation. No erosions. No radiopaque foreign body. Calcifications superior to the humerus. Superior migration of the distal clavicle in relation to the acromion. IMPRESSION: 1. Superior migration of the distal clavicle in relation to the acromion. 2. There are calcifications surrounding the acromioclavicular joint and superior to the humerus which are indeterminate. There is a broad differential diagnosis including degenerative changes, metabolic conditions, crystal deposition, posttraumatic and neoplastic/inflammatory causes. MRI of the shoulder is recommended for further evaluation. This document has been electronically signed by: Carter Ansari DO on 03/22/2025 12:20:11
--- OUTSIDE RECORDS SUMMARY | 2025-03-22 09:35 | XMS_ITS | Clinical Summary ---
Author Organization [facility] Address [address] [place] [address] Phone Care Team Providers Care Safety Glass Installer Name Role Phone Hector Otto MD Primary Care Provider [phone] Allergies Active Allergy Reactions Criticality Noted Date Comments Lisinopril Cough 09/09/2024 Medications cyclobenzaprine (FLEXERIL) 10 mg tablet Take 1 tablet (10 mg total) by mouth 2 (two) times a day if needed for muscle spasms for up to 10 days. 20 tablet 09/09/2024 Active Encounters Date Type Department Care Team Description 01/25/2025 11:00 AM EDT Office Visit Orthopedic Surgery [facility] [address] [place] [id number] Jam Villatoro DPM Pain in left foot (Primary Dx); Metatarsalgia of left foot; Eccrine poroma of foot, left from Last 3 Months Surgical History Surgery [...] Last Done Comments Breast Cancer Screening 1976 Colorectal Cancer Screening: Colonoscopy 1976 Cervical Cancer Screening: Pap Smear 1997 Cholesterol Screening (Lipid Panel) 05/13/2022 HIV Screening 05/13/2022 Hepatitis C Screening 05/13/2022 Social Influencers of Health Screening 05/13/2022 Depression Screening 06/10/2024 COVID-19 Vaccine ( season) 2025 04/05/2023, 05/23/2022, 07/28/2021, Additional history exists Influenza Vaccine (#1) 2025 , 03/21/2023, 03/23/2022, Additional history exists Hypertension/CHF/CAD Annual BMP Blood Test 11/19/2025 11/19/2024, 11/19/2024, 10/17/2024, Additional history exists DTaP,Tdap,and Td Vaccines (3 - Td or Tdap) 01/11/2035 01/11/2025, 06/27/2018 RSV Immunization Adult Patients (1 - 1-dose 75+ series) 2051 Hepatitis B Vaccines Completed 09/08/2007, 04/07/2007, 03/07/2007 [...] or Most Recently Relevant to Health Maintenance Results * (ABNORMAL) Comprehensive metabolic panel (10/17/2024 7:12 PM EDT) Sodium 137 133 - 145 mmol/L LAB CHEMISTRY METHOD 10/17/2024 8:34 PM [facility] Potassium 3.7 3.5 - 5.5 mmol/L LAB CHEMISTRY METHOD 10/17/2024 8:34 PM [facility] Chloride 102 96 - 110 mmol/L LAB CHEMISTRY METHOD 10/17/2024 8:34 PM [facility] CO2 25 21 - 32 mmol/L LAB CHEMISTRY METHOD 10/17/2024 8:34 PM [facility] Anion Gap 10 3 - 11 LAB CHEMISTRY METHOD 10/17/2024 8:34 PM [facility] Glucose 85 70 - 100 mg/dL LAB CHEMISTRY METHOD 10/17/2024 8:34 PM [facility] BUN 14 5 - 25 mg/dL LAB CHEMISTRY METHOD 10/17/2024 8:34 PM [facility] Creatinine 0.72 0.50 - 1.10 mg/dL LAB CHEMISTRY METHOD 10/17/2024 8:34 PM [facility] eGFR 103 >=60 mL/min/1. 73m2 LAB CHEMISTRY METHOD 10/17/2024 8:34 PM [facility] Comment:Calculation based on the Chronic Kidney Disease Epidemiology Collaboration (CKD-EPI) equation refit without adjustment for race. BUN/Creatinine Ratio 19.4 LAB CHEMISTRY METHOD 10/17/2024 8:34 PM [facility] Calcium 9.6 8.5 - 10.5 mg/dL LAB CHEMISTRY METHOD 10/17/2024 8:34 PM [facility] AST (SGOT) 55(H) 10 - 42 unit/L LAB CHEMISTRY METHOD 10/17/2024 8:34 PM [facility] ALT (SGPT) 61(H) 10 - 60 unit/L LAB CHEMISTRY METHOD 10/17/2024 8:34 PM [facility] Alkaline Phosphatase 127(H) 42 - 121 unit/L LAB CHEMISTRY METHOD 10/17/2024 8:34 PM [facility] Total Protein 7.2 6.0 - 8.0 g/dL LAB CHEMISTRY METHOD 10/17/2024 8:34 PM [facility] Albumin 4.0 3.2 - 5.0 g/dL LAB CHEMISTRY METHOD 10/17/2024 8:34 PM [facility] Total Bilirubin 0.5 0.0 - 1.4 mg/dL LAB CHEMISTRY METHOD 10/17/2024 8:34 PM [facility] Blood Venous blood specimen / Unknown Venipuncture / Unknown 10/17/2024 7:12 PM EDT 10/17/2024 7:50 PM EDT us Jacky Jimenes DO LAB BLOOD ORDERABLES Final Res ult [facility] [address] [place] [address], from Last 3 Months or Most Recently Relevant to Health Maintenance Insurance [facility] MEDICAID ADVANTAGE Care Teams Safety Glass Installer Relationship Specialty Start Date End Date Hector Otto MD [address] [place] [address] PCP - General Internal Medicine 10/20/24
--- OUTSIDE RECORDS SUMMARY | 2025-03-22 09:35 | XMS_ITS | Clinical Summary ---
Author Organization [facility] Address [address] [address] Phone Care Team Providers Care Physiotherapy Aide Name Role Phone Hector Otto MD Primary Care Provider [phone] Allergies Active Allergy Reactions Criticality Noted Date [...] BY MOUTH EVERY DAY 90 capsule 3 5 Active Active Problems Problem Noted Date Diagnosed [...] 02/20/2022 Overview (09/20/2021): Followed by Dr. Kulwinder Veronica Renal stone 09/20/2021 02/20/2022 Overview (09/20/2021): followed by Dr. 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 [address] [phone] Kulwinder Veronica MD [address] [id number] Health Maintenance Due Date Last Done Comments Hepatitis B Vaccine (1 of 3 - 19+ 3-dose series) 1995 09/08/2007, 04/07/2007, 03/07/2007 Pneumococcal Vaccine: Peds ( 0 to 5 Years) and At-Risk Patients (6 to 49 Years) (1 of 2 - PCV) 1995 Influenza Vaccine (#1) 2025 4, 03/21/2023, 03/23/2022, Additional history exists Insurance [facility] Medicaid [employer] Medicaid Care Teams Physiotherapy Aide Relationship Specialty Start Date End Date Hector Otto MD [address] [place] [id number] PCP - General Internal Medicine 02/02/21
== END 2025-03-22 09:29 | disposition home or self-care (01) ==
LOC: HO.XRAY 09:28
PROVIDERS: PCP Internal Medicine; Visit Provider Internal Medicine Rheumatology
DX: M75.42 Impingement syndrome of left shoulder (principal)
CPT/HCPCS: 73030

== ENCOUNTER → 2025-03-22 09:32 | Outpatient (BNV) | payer OTHER, SELFPAY | PROVIDERS: PCP Internal Medicine; Visit Provider Family Medicine | DX: M75.42 Impingement syndrome of left shoulder (principal) | CPT/HCPCS: 73030 ==

== ENCOUNTER → 2025-05-20 07:22 | Outpatient (BNV) | payer OTHER, SELFPAY | PROVIDERS: PCP Internal Medicine; Visit Provider Radiology Diagnostic Ultrasound | DX: M19.012 Primary osteoarthritis, left shoulder (principal); M75.32 Calcific tendinitis of left shoulder | CPT/HCPCS: 73221 ==

== ENCOUNTER 2025-05-20 07:24 | Outpatient (REF) | payer OTHER, SELFPAY ==
--- NOTE | ~2025-05-20 | MR_ITS ---
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 FINDINGS: ROTATOR CUFF: Supraspinatus: Mild tendinosis. There is relative low T1/T2 signal in the posterior fibers measuring 1.3 x 1.3 cm, suggestive of calcific tendinitis. Infraspinatus: Intact Teres minor: Intact Subscapularis tendon: Mild-moderate tendinosis. No muscle atrophy or fatty infiltration. BICEPS: Intact CORACOACROMIAL ARCH: The undersurface of the acromion is curved with no subacromial spur. Moderate acromioclavicular arthritis. There is a low T1/T2 signal inferior to the joint, in the region of the subacromial subdeltoid space, suggestive of calcific densities, seen on the prior x-ray. Trace edema/fluid in the subacromial subdeltoid space. LABRUM/CAPSULE: No displaced labral tear is seen. Intact inferior capsule GLENOHUMERAL JOINT/MARROW: No fracture. No high-grade chondral loss. No significant effusion. No axillary lymphadenopathy. MR/MR shoulder LT wo con IMPRESSION: * Mild supraspinatus tendinosis. 1.3 x 1.3 cm no T1/T2 signal focus in the posterior fibers suggestive of calcific tendinitis. * Mild-moderate subscapularis tendinosis. * Moderate acromioclavicular arthritis. * Low signal foci inferior to the acromioclavicular joint/in the subacromial subdeltoid space, suggestive of calcifications correlating with the calcifications seen on the prior x-ray. Differential consideration include sequela of degeneration, crystal deposition, posttraumatic/inflammatory etiologies. Clinically correlate. Recommend clinical radiographic follow-up, with further imaging as clinically indicated. Electronically signed by: Dionte Koenig MD 05/21/2025 08:28 AM [facility] CARBAJAL
--- OUTSIDE RECORDS SUMMARY | 2025-05-20 07:26 | XMS_ITS | Clinical Summary ---
Author Organization 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 Immunizations Immunization Administration Dates Next Due Hep [...] Office Visit [facility] [address] [phone] [place] [address] [place] [phone] Health Maintenance Due Date Last Done Comments Hepatitis B Vaccine (1 of 3 - 19+ 3-dose series) 1995 09/08/2007, 04/07/2007, 03/07/2007 Pneumococcal Vaccine: Peds ( 0 to 5 Years) and At-Risk Patients (6 to 49 Years) (1 of 2 - PCV) 1995 Influenza Vaccine (#1) 2025 4, 03/21/2023, 03/23/2022, Additional history exists Insurance [facility] Medicaid [facility] Medicaid Care Teams Client Support Consultant Relationship Specialty Start Date End Date Hector Otto MD [address] [place] [id number] PCP - General Internal Medicine 02/02/21
--- OUTSIDE RECORDS SUMMARY | 2025-05-20 07:26 | XMS_ITS | Clinical Summary ---
Author Organization [facility] Address [address] [place] [address] Phone Care Team Providers Care Skilled Labor Name Role Phone Hector Otto MD Primary Care Provider [phone] Allergies Active Allergy Reactions Criticality Noted Date Comments Lisinopril Cough 09/09/2024 Medications cyclobenzaprine (FLEXERIL) 10 mg tablet Take 1 tablet (10 mg total) by mouth 2 (two) times a day if needed for muscle spasms for up to 10 days. 20 tablet 09/09/2024 Active Surgical History Surgery Date Site/Laterality Comments CARPAL [...] Orientation Straight 09/09/2024 7: 42 AM EDT Last Filed Vital Signs Vital Sign Reading [...] mmol/L LAB CHEMISTRY METHOD 10/17/2024 8:34 PM [facility] Potassium 3.7 3.5 - 5.5 mmol/L LAB CHEMISTRY METHOD 10/17/2024 8:34 PM [facility] Chloride 102 96 - 110 mmol/L LAB CHEMISTRY METHOD 10/17/2024 8:34 PM [facility] CO2 25 21 - 32 mmol/L LAB CHEMISTRY METHOD 10/17/2024 8:34 PM [facility] Anion Gap 10 3 - 11 LAB CHEMISTRY METHOD 10/17/2024 8:34 PM [facility] Glucose 85 70 - 100 mg/dL LAB CHEMISTRY METHOD 10/17/2024 8:34 PM [facility] BUN 14 5 - 25 mg/dL LAB CHEMISTRY METHOD 10/17/2024 8:34 PM [facility] Creatinine 0.72 0.50 - 1.10 mg/dL LAB CHEMISTRY METHOD 10/17/2024 8:34 PM [facility] eGFR 103 >=60 mL/min/1. 73m2 LAB CHEMISTRY METHOD 10/17/2024 8:34 PM [facility] Comment:Calculation based on the Chronic Kidney Disease Epidemiology Collaboration (CKD-EPI) equation refit without adjustment for race. BUN/Creatinine Ratio 19.4 LAB CHEMISTRY METHOD 10/17/2024 8:34 PM EDT [facility] Calcium 9.6 8.5 - 10.5 mg/dL LAB CHEMISTRY METHOD 10/17/2024 8:34 PM T [facility] AST (SGOT) 55(H) 10 - 42 unit/L LAB CHEMISTRY METHOD 10/17/2024 8:34 PM T [facility] ALT (SGPT) 61(H) 10 - 60 unit/L LAB CHEMISTRY METHOD 10/17/2024 8:34 PM [facility] Alkaline Phosphatase 127(H) 42 - 121 unit/L LAB CHEMISTRY METHOD 10/17/2024 8:34 PM [facility] Total Protein 7.2 6.0 - 8.0 g/dL LAB CHEMISTRY METHOD 10/17/2024 8:34 PM [facility] Albumin 4.0 3.2 - 5.0 g/dL LAB CHEMISTRY METHOD 10/17/2024 8:34 PM [facility] Total Bilirubin 0.5 0.0 - 1.4 mg/dL LAB CHEMISTRY METHOD 10/17/2024 8:34 PM T [facility] Blood Venous blood specimen / Unknown Venipuncture / Unknown 10/17/2024 7:12 PM EDT 10/17/2024 7:50 PM EDT us Jacky Jimenes DO LAB BLOOD ORDERABLES Final Res ult [facility] [address] [place] [address], from Last 3 Months or Most Recently Relevant to Health Maintenance Insurance [facility] MEDICAID ADVANTAGE Care Teams Skilled Labor Relationship Specialty Start Date End Date Hector Otto MD [address] [place] [address] PCP - General Internal Medicine 10/20/24
== END 2025-05-20 07:25 | disposition home or self-care (01) ==
LOC: HO.MRI 07:24
PROVIDERS: PCP Internal Medicine; Visit Provider Internal Medicine Rheumatology
DX: M75.42 Impingement syndrome of left shoulder (principal)
CPT/HCPCS: 73221